=== PATIENT | male | born 1980 | race Caucasian/White ===

== ENCOUNTER 2018-08-06 11:47 | Emergency (ER) | payer MEDICAID, OTHER ==
[~2018-08-06] VITALS: Ht 193 cm; Wt 93.0 kg
[~2018-08-06 11:47] MED LIST: CLIN300C3 PO; HYDR-757 PO; LACT1CAP62 PO; OMEG1CAP51 PO
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
--- OUTSIDE RECORDS SUMMARY | 2018-08-06 11:54 | XMS REPORT | Referral Summary ---
Author Author [facility] Organization [facility] Address Unknown Phone Unavailable Care Team Providers Care Lawn And Garden Technician Name Role Phone No PCP, Pt States PCP Encounter VC Date(s): 04/11/17 - 04/11/17 [facility] [address] [place] [address] [phone] Discharge Diagnosis: Acute foreign body of right foot Discharge Diagnosis: Puncture wound of foot Discharge Disposition: 01-Home or Self Care Attending Physician: Vinay Matias MD Admitting Physician: Vinay Matias MD Vital Signs Most recent to 1 oldest [Reference Range]: Temperature Oral 36.8 degC [35.8-37.3 degC] (04/11/17 5:34 PM) Peripheral Pulse 84 bpm Rate [60-100 bpm] (04/11/17 7:21 PM) Respiratory Rate 18 br/min [14-20 br/min] (04/11/17 7:21 PM) Blood Pressure 123/84 mmHg [90-140/60-90 mmHg] (04/11/17 7:21 PM) SpO2 99 % (04/11/17 7:21 PM) Problem List No Known Problems Allergies, Adverse Reactions, Alerts Substance Reaction Severity Status morphine Anaphylactic reaction Active Tomatoes Anaphylactic reaction Active Toradol Anaphylactic reaction due to adverse effect Active of correct drug or medicament properly administered, sequela Medications Fish Oil Oral, 0 Refill(s) Start Date: 04/11/17 Status: Ordered Keflex 500 mg oral capsule 500 mg 1 caps, Oral, TID, X 10 days, # 30 caps, 0 Refill(s) Start Date: 04/11/17 Stop Date: 04/21/17 Status: Ordered multivitamin Daily, 0 Refill(s) Start Date: 04/11/17 Status: Ordered Hereford 7.5 mg-325 mg oral tablet 1 tabs, Oral, q6hr, as needed for pain, # 20 tabs, 0 Refill(s) Start Date: 04/11/17 Stop Date: 04/26/17 Status: Ordered Hereford 7.5 mg-325 mg oral tablet 1 tabs, Oral, q6hr, as needed for pain, # 15 tabs, 0 Refill(s) Start Date: 04/11/17 Stop Date: 05/03/17 Status: Ordered Results No data available for this section Immunizations No data available for this section Procedures Procedure Date Related Diagnosis Body Site Laparotomy Social History No data available for this section Assessment and Plan No data available for this section
--- OUTSIDE RECORDS SUMMARY | 2018-08-06 11:54 | XMS REPORT ---
Author Author [facility] Medical Staff Organization [facility] Address [address] [place] [address] Phone [phone] Summary purpose TRANSITION OF CARE AUTO GENERATION Chief Complaint and Reason for Visit No authorized Reason for Visit (Admitting Diagnosis) is available for this visit. Problem list No authorized problems tracked for continuity of care are available for this visit. Encounters No authorized problems tracked for encounter diagnoses are available for this visit. Medications No medications recorded for this patient visit Allergies, adverse reactions, alerts Allergen Category Ingredient Status Reaction Severity Onset Toradol Drug Allergy Toradol Confirmed or Verified Toradol Drug Allergy ketorolac Confirmed or Verified morphine Drug Allergy morphine Confirmed or Verified NSAIDS (Non-Steroidal Anti-Inflammatory Drug) Drug Allergy NSAIDS (Non- Steroidal Anti-Inflammatory Drug) Confirmed or Verified influenza virus vacc,specific Drug Allergy influenza virus vacc,specific Confirmed or Verified Immunizations No immunizations recorded for this patient visit Relevant diagnostic tests and/or laboratory data RESULTS Radiology Results [id number]:00 HAND XRAY - 3 VIEW PACs Image DATE OF EXAM: Aug 25 2015 RAD 0730-HAND XRAY-3 VIEW- LEFT: RADIOLOGY REPORT DATE OF SERVICE:08/25/2015 HISTORY:Screwdriver in hand LEFT HAND 3 VIEWS:1823 HOURS Patient has ice pick type appearing metal structure within the soft tissues of the hand between the first and second metacarpals. This does not appear to affect bony structures. There is soft tissue swelling in the area of opaque ice pick foreign body. Again bony structures and joints are normal. IMPRESSION:As above. DO KAREN Reina/leigha 08/26/2015 08:43:00 / 08/26/2015 09:36:44 cc: This document has been electronically Signed by: On: DATE OF EXAM: Aug 25 2015 RAD 0730-HAND XRAY-3 VIEW- LEFT: RADIOLOGY REPORT DATE OF SERVICE:08/25/2015 HISTORY:Screwdriver in hand LEFT HAND 3 VIEWS:1823 HOURS Patient has ice pick type appearing metal structure within the soft tissues of the hand between the first and second metacarpals. This does not appear to affect bony structures. There is soft tissue swelling in the area of opaque ice pick foreign body. Again bony structures and joints are normal. IMPRESSION:As above. DO Melva Reina 08/26/2015 08:43:00 / 08/26/2015 09:36:44 cc: This document has been electronically Signed by: AURY MALONE DO On: Aug 28 20154:34P Result Amended on 2015-08-28 at 16:34:47. Previous status was HI. HAND XRAY - 3 VIEW PACs Image DATE OF EXAM: Aug 25 2015 RAD 0730-HAND XRAY-3 VIEW- LEFT: RADIOLOGY REPORT DATE OF SERVICE:08/25/2015 HISTORY:Removal of foreign body. LEFT HAND: 1828 HOURS No residual opaque foreign body is seen. Soft tissues are otherwise unremarkable with likely some swelling in the area where the ice pick was inserted laterally into the hand. Overall hand appears normal. IMPRESSION: As above. DO Melva Reina 08/26/2015 08:43:00 / 08/26/2015 09:38:23 cc: This document has been electronically Signed by: On: DATE OF EXAM: Aug 25 2015 RAD 0730-HAND XRAY-3 VIEW- LEFT: RADIOLOGY REPORT DATE OF SERVICE:08/25/2015 HISTORY:Removal of foreign body. LEFT HAND: 1828 HOURS No residual opaque foreign body is seen. Soft tissues are otherwise unremarkable with likely some swelling in the area where the ice pick was inserted laterally into the hand. Overall hand appears normal. IMPRESSION: As above. DO Melva Reina 08/26/2015 08:43:00 / 08/26/2015 09:38:23 cc: This document has been electronically Signed by: AURY MALONE DO On: Aug 28 20154:34P Result Amended on 2015-08-28 at 16:34:50. Previous status was HI. History of procedures Procedure Code Code Type Description Date Performed Performing Physician 71088 CPT-4 X-RAY EXAM OF HAND 08-25-2015 JEVON MUNIZ 77462 CPT-4 X-RAY EXAM OF HAND 08-25-2015 JEVON MUNIZ J3010 CPT-4 FENTANYL CITRATE INJECITON 08-25-2015 JEVON MUNIZ J2060 CPT-4 LORAZEPAM INJECTION 08-25-2015 JEVON MUNIZ J0690 CPT-4 CEFAZOLIN SODIUM INJECTION 08-25-2015 JEVON MUNIZ J7040 CPT-4 NORMAL SALINE SOLUTION INFUS 08-25-2015 JEVON MUNIZ 69092 CPT-4 TDAP VACCINE >7 IM 08-25-2015 JEVON MUNIZ 93039 CPT-4 EMERGENCY DEPT VISIT 08-25-2015 JEVON MUNIZ 71510 CPT-4 EMERGENCY DEPT VISIT 08-25-2015 JEVON MUNIZ 57539 CPT-4 TX/PRO/DX INJ NEW DRUG ADDON 08-25-2015 JEVON MUNIZ 90656 CPT-4 THER/PROPH/DIAG IV INF, INIT 08-25-2015 JEVON MUNIZ Functional status Functional Status Finding Observation Time Abdomen Appearance flat 89-47-389794:23 Abdomen soft 32-72-779122:23 Mederos no 29-36-205858:23 Urination normal 48-99-707296:23 Quality sym/unlabored 14-84-206789:23 Cough absent 11-14-652991:23 Secretions no :23 Breath Sounds RUL clear :23 Breath Sounds RML clear :23 Breath Sounds RLL clear :23 Breath Sounds BERNADETTE clear :23 Breath Sounds LLL clear 85-51-050237:23 Airway natural :23 Chest Tube no :23 Oxygen no :28 Temp >100.4 no : Temp <96.8 no :23 Chills with rigors no : HR > 90bpm yes :23 Respirations > 20 no :23 Systolic <90 no :23 headache stiff neck no :23 IV Site Location R AC :25 IV Type peripheral :25 IV Site Information discontinued :25 IV Site Start Attmpt 1 times :10 IV Site Rocky 20 :10 IV Site Appearance WNL :10 IV Site Color clear :10 IV Site Patent yes :10 Dressing Type occlusive :10 Nursing Note pt dc'd to home at this time in good condition and with all known belongings. pt exited ambulatory in care of spouse. rx for cephalexin and hydrocodone in hand. :28 Vital signs Type Value Date Respiration Rate 16breaths per minute : Pulse 88beats per minute : Oxygen Saturation 99% :28 BP Systolic 119mmHg :28 BP Diastolic 75mmHg :28 Temperature 98.4F :28 Weight 197.2LB :55 Social history Type Value Smoking Status NEVER SMOKER Treatment Plan No treatment plan text is available for this visit. Hospital discharge instructions Dismissal Condition good Disposition on DC home DC Inst/Educ Give yes Med/Side Effects Rev yes Flu Vac 2014 Tetanus Vac 2010
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
--- OUTSIDE RECORDS SUMMARY | 2018-08-06 11:54 | XMS REPORT ---
Author Author [facility] Medical Staff Organization [facility] Address [address] [place] [facility] [place] [id number] Phone [phone] Care Team Providers Care Senior Systems Programmer Name Role Phone CANDY GARCIA DO PP [phone] CANDY GARCIA DO PP [phone] Summary purpose CCDA Sent to [facility] Chief Complaint and Reason for Visit No authorized Reason for Visit (Admitting Diagnosis) is available for this visit. Problem list No authorized problems tracked for continuity of care are available for this visit. Encounters No authorized problems tracked for encounter diagnoses are available for this visit. Medications Home Medications Medication Directions Started Status Source multivitamin tablet 1 tablet oral -Daily Current Fish Oil oral 1 tablet oral -Daily Current Allergies, adverse reactions, alerts Allergen Category Ingredient Status Reaction Severity Onset morphine Drug morphine Active Anaphylaxis Adolescence tramadol Drug tramadol Active Anaphylaxis Adolescence lidocaine Drug lidocaine Active Swelling/Edema Adolescence Immunizations No immunizations recorded for this patient visit Relevant diagnostic tests and/or laboratory data No authorized results are available for this patient visit History of procedures No procedures recorded for this patient visit. Functional status Cognitive Status Finding Observation Time Level of Consciousne Alert :50 Oriented to Person Yes :[address] Yes :50 Oriented to Time Yes :50 Vital signs Type Value Date Respirations 16 :57 Pulse 88 :57 O2 Saturation 100% :57 Systolic Blood Press 110mm/HG :57 Diastolic Blood Pres 68mm/HG :57 Temperature (Fahr) 99.2Degrees :50 Social history No Social History or smoking status observations were recorded for this visit. ( Unknown if ever smoked.) Treatment Plan No treatment plan text is available for this visit. Hospital discharge instructions Diagnosis FOREIGN OBJECT TO LEFT LOWER EXTREMITY Diet REGULAR Activity Level TOLERATED Med Dispensed by Pro YOU WERE GIVEN ROCEPHIN 2 GM (ANTIBIOTIC) WHILE IN ER TODAY WELL FENTANYL AND IBUPROFEN FOR PAIN. YOU WERE NOT GIVEN A TETANUS BOOSTER SINCE YOUR LAST WAS 2 YEARS AGO Wound Care WATCH FOR SIGNS OF INFECTION- REDNESS, WARMTH, DRAINAGE Other Instructions FOLLOW UP WITH YOUR PRIMARY CARE PROVIDER IN 5-7 DAYS TO FOLLOW UP ON PUNCTURE WOUND . USE IBUPROFEN FOR PAIN, ICE AND ELEVATE IF NEEDED
--- OUTSIDE RECORDS SUMMARY | 2018-08-06 11:54 | XMS REPORT | Clinical Summary ---
Author Author [facility] Organization [facility] Address Unknown Phone Unavailable Care Team Providers Care Banquet Bartender Name Role Phone Shayy Valdes RN Unavailable Unavailable Yael Gaytan RN Unavailable Unavailable Yusuf Cardona RN Unavailable Unavailable Vinay Vela MD Unavailable t [facility] PCP Shayy Denney RN Unavailable Unavailable Doe Yan RN Unavailable Unavailable Rachna Contreras RN Unavailable Unavailable Trish Edward MD Unavailable Source Comments Some departments are not documenting in the electronic medical record. If you do not see the information that you expected, contact Release of Information in the Health Information Management department at [phone] for further assistance in locating additional records.[facility] Allergies Comments Active Allergy Reactions Severity Noted Date Morphine HIVES 08/06/2010 Tomato seeds Tomato ANAPHYLAXIS 03/22/2011 Ketorolac HIVES, 08/06/2010 ITCHING Medications End Date Status Medication Sig Dispensed Refills Start Date Active PV W-O MOSES/FERROUS Take by 0 FUMARATE/FA (M-VIT PO) mouth. Active divalproex ER (DEPAKOTE Take 500 mg 0 ER) 500 mg tablet by mouth daily. Active topiramate (TOPAMAX) 25 Take 25 mg by 0 mg sprinkle capsule mouth every 12 hours. Active Problems Problem Noted Date Thoracic myofascial strain 07/07/2015 Lumbar spine strain 07/07/2015 Myofascial pain 07/07/2015 Chest wall pain 03/23/2011 Family History Relation Name Status Comments Father Alive Mother Social History Date Tobacco Use Types Packs/Day Years Used Never Smoker Smokeless Tobacco: Chew Current User Tobacco Cessation: Ready to Quit: Yes; Counseling Given: Yes Alcohol Use Drinks/Week oz/Week Comments No rarely Sex Assigned at Date Recorded Not on file Industry Job Start Date Occupation Not on file Not on file Not on file Travel End Travel History Travel Start No recent travel history available. Last Filed Vital Signs Time Taken Vital Sign Reading 07/07/2015 12:06 PM CDT Blood Pressure 116/79 07/07/2015 12:06 PM CDT Pulse 79 02/05/2013 3:49 PM CDT Temperature 36.8 C (98.3 F) 07/07/2015 12:06 PM CDT Respiratory Rate 18 07/07/2015 12:06 PM CDT Oxygen Saturation 100% - Inhaled Oxygen - Concentration 07/07/2015 12:06 PM CDT Weight 90.7 kg (200 lb) 07/07/2015 12:06 PM CDT Height 193 cm (6' 4") 07/07/2015 12:06 PM CDT Body Mass Index 24.34 Plan of Treatment Health Maintenance Due Date Last Done Comments PHYSICAL (COMPREHENSIVE) 1985 EXAM HIV SCREENING 1993 DTAP/TDAP VACCINES (1 - 1996 Tdap) INFLUENZA VACCINE 01/05/2019 Results Not on filefrom Last 3 Months Advance Directives Patient has advance care planning documents, and code status on file. For more information, please contact: [facility] [address] [place] [address] Date Inactivated Comments Code Status Date Activated 03/23/2011 1:20 PM Full Code 03/22/2011 5:26 PM Provider has discussed Code Status Yes w/Patient or Family?
--- OUTSIDE RECORDS SUMMARY | 2018-08-06 11:54 | XMS REPORT | Clinical Summary ---
Author Author [facility] Organization [facility] Address Unknown Phone Unavailable Care Team Providers Care Script Manager Name Role Phone [facility] Medical PCP Allergies Active Allergy Reactions Severity Noted Date Comments Epinephrine Swelling 08/29/2015 Morphine Anaphylaxis High 12/08/2013 Ketorolac Anaphylaxis High 12/08/2013 Current Medications Prescription Sig. Disp. Refills Start End Date Status Date omega 3 fatty acids Take 1,000 mg by mouth Active 500-100 mg capsule daily. therapeutic multivitamin Take 1 tablet by mouth Active (THERAGRAN) tablet daily. diazepam (VALIUM) 2 MG Take 1 tablet (2 mg 10 tablet 0 02/07/20 Active tablet total) by mouth every 8 14 (eight) hours as needed. Active Problems Not on file Immunizations Name Dates Previously Given Next Due Tdap 08/29/2015 Social History Tobacco Use Types Packs/Day Years Used Date Never Smoker Smokeless Tobacco: Chew Current User Alcohol Use Drinks/Week oz/Week Comments No Sex Assigned at Date Recorded Not on file Last Filed Vital Signs Vital Sign Reading Time Taken Blood Pressure 135/92 08/29/2015 5:33 PM CDT Pulse 98 08/29/2015 5:33 PM CDT Temperature 36.8 C (98.3 F) 08/29/2015 5:33 PM CDT Respiratory Rate 16 08/29/2015 5:33 PM CDT Oxygen Saturation 99% 08/29/2015 5:33 PM CDT Inhaled Oxygen - - Concentration Weight 93 kg (205 lb) 08/29/2015 5:33 PM CDT Height 193 cm (6' 3.98") 08/29/2015 5:33 PM CDT Body Mass Index 24.96 08/29/2015 5:33 PM CDT Plan of Treatment Date Type Specialty Care Team Description 09/28/2018 Office Visit Primary Care Kacy Roman PA [address] [place] [address] [phone] Results Not on filefrom Last 3 Months
--- OUTSIDE RECORDS SUMMARY | 2018-08-06 11:54 | XMS REPORT ---
Author Author [facility] Medical Staff Organization [facility] Address [address] [place] [id number] Phone [phone] Care Team Providers Care Lime Plant Operator Name Role Phone CANDY GARCIA DO PP [phone] Summary purpose CCDA Sent to [facility] Chief Complaint and Reason for Visit No authorized Reason for Visit (Admitting Diagnosis) is available for this visit. Problem list No authorized problems tracked for continuity of care are available for this visit. Encounters No authorized problems tracked for encounter diagnoses are available for this visit. Medications No home medications recorded for this patient visit Allergies, [...] recorded for this patient visit. Functional status No functional or cognitive status observations are available for this visit. Vital signs No authorized vital signs are available for this visit. Social history No Social History or smoking status observations were recorded for this visit. ( Unknown if ever smoked.) Treatment Plan No treatment plan text is available for this visit. Hospital discharge instructions No discharge instruction text is available for this visit.
--- OUTSIDE RECORDS SUMMARY | 2018-08-06 11:54 | XMS REPORT ---
Author Author [facility] Medical Staff Organization [facility] [employer] [facility] Address [address] [place] [address] Phone [phone] Summary purpose TRANSITION OF CARE AUTO GENERATION [...] recorded for this patient visit. Functional status Functional Status Finding Observation Time Abdomen Appearance flat :23 Abdomen soft :23 Mederos no :23 Urination normal :23 Quality sym/unlabored : Cough absent :23 Secretions no :23 Breath Sounds RUL clear :23 Breath Sounds RML clear :23 Breath Sounds RLL clear :23 Breath Sounds BERNADETTE clear : Breath Sounds LLL clear :23 Airway natural :23 Chest Tube no :23 Oxygen no :28 Temp >100.4 no : Temp <96.8 no :23 Chills with rigors no : HR > 90bpm yes : Respirations > 20 no : Systolic <90 no : headache stiff neck no : IV Site Location R AC : IV Type peripheral :25 IV Site Information discontinued : IV Site Start Attmpt 1 times : IV Site Rocky 20 : IV Site Appearance WNL : IV Site Color clear : IV Site Patent yes : Dressing Type occlusive : Nursing Note pt dc'd to home at this time in good condition and with all known belongings. pt exited ambulatory in care of spouse. rx for cephalexin and hydrocodone in hand. :28 Vital signs Type Value Date Respiration Rate 16breaths per minute : Pulse 88beats per minute : Oxygen Saturation 99% : BP Systolic 119mmHg :28 BP Diastolic 75mmHg [...]
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
--- OUTSIDE RECORDS SUMMARY | 2018-08-06 11:55 | XMS REPORT | Continuity of Care Document ---
Author Author Awais [facility] Address [address] [place] [address] Care Team Providers Care Cookie Breaker Name Role Phone , PCP Unavailable Yarelis Sparrow Rndphys Unavailable Allergies, Adverse Reactions, Alerts Allergen Type Severity Reaction Last Updated Verified Status ketorolac Allergy Severe ANAPHYLAXIS November 16, 2017 Y Active morphine Allergy Severe Anaphylaxis November 16, 2017 Y Active sumatriptan Allergy Severe SEIZURES November 16, 2017 Y Active tomato Allergy Severe Anaphylaxis November 16, 2017 Y Active influenza A (H1N1) virus vaccine m-kelsi-split 2008 Allergy Mild Hives November 16, 2017 Y Active Medications No known medications. Problem List Active Problems Medical Problem Onset Date Status Hip pain, acute Active Knee pain, left Active Abdominal pain Active Pain in left testicle Active Procedures Procedure Date Status CT abdomen pelvis w con June 01, 2018 completed Relevant Diagnostic Tests and/or Laboratory Data Laboratory Results Test Date/Time Result Interp. Ref. Range Result Comment White Blood Count June 01, 2018 11:20am 7.8 10^3/uL 4.5-11.0 Red Blood Count June 01, 2018 11:20am 4.87 10^6/uL 4.70-6.00 Hemoglobin June 01, 2018 11:20am 14.9 g/dL 13.5-17.5 Hematocrit June 01, 2018 11:20am 42.5 % 41-53 Mean Corpuscular Volume June 01, 2018 11:20am 87.4 fL 79-99 Mean Corpuscular Hemoglobin June 01, 2018 11:20am 30.7 pg 25.0-34.0 Mean Corpuscular Hemoglobin Concent June 01, 2018 11:20am 35.1 g/dL 31.0-36.0 Red Cell Distribution Width June 01, 2018 11:20am 14.1 % 11.0-15.0 Platelet Count June 01, 2018 11:20am 153 10^3 uL 130-400 Mean Platelet Volume June 01, 2018 11:20am 8.5 fL 7.0-11.0 Neutrophils (%) (Auto) June 01, 2018 11:20am 76.4 % High 43.0-72.0 Lymphocytes (%) (Auto) June 01, 2018 11:20am 10.6 % Low 15.0-45.0 Monocytes (%) (Auto) June 01, 2018 11:20am 12.6 % High 1.0-12.0 Eosinophils (%) (Auto) June 01, 2018 11:20am 0.1 % 0.0-6.0 Basophils (%) (Auto) June 01, 2018 11:20am 0.3 % 0.0-2.0 Neutrophils # (Auto) June 01, 2018 11:20am 6.0 10^3 uL 1.0-8.0 Lymphocytes # (Auto) June 01, 2018 11:20am 0.8 10^3 uL Low 1.0-3.0 Monocytes # (Auto) June 01, 2018 11:20am 1.0 10^3 uL 0.0-1.0 Eosinophils # (Auto) June 01, 2018 11:20am 0.0 10^3 uL 0.0-0.4 Basophils # (Auto) June 01, 2018 11:20am 0.0 10^3 uL 0.0-0.2 Urine Color June 01, 2018 11:41am Yellow Yellow Urine Appearance June 01, 2018 11:41am Clear Clear Urine pH June 01, 2018 11:41am 5.5 4.5 - 7.5 Urine Specific [place] June 01, 2018 11:41am 1.025 1.010-1.025 Urine Protein June 01, 2018 11:41am 2+ High Neg-Trace Urine Glucose (UA) June 01, 2018 11:41am Negative Negative Urine Ketones June 01, 2018 11:41am Negative Negative Urine Blood June 01, 2018 11:41am Trace High Negative Urine Nitrite June 01, 2018 11:41am Negative Negative Urine Bilirubin June 01, 2018 11:41am 1+ High Negative Urine Urobilinogen June 01, 2018 11:41am 2.0 High <=1.0 Urine Leukocyte Esterase June 01, 2018 11:41am Negative Negative Urine RBC June 01, 2018 11:41am 2-5 0 - 5 Urine WBC June 01, 2018 11:41am 2-4 0 - 4 Urine Squamous Epithelial Cells June 01, 2018 11:41am Not Reportable Urine Bacteria June 01, 2018 11:41am Trace High Negative Urine Mucus June 01, 2018 11:41am 2+ High None Seen Urine Culture Indicated June 01, 2018 11:41am Not Indicated No Culture Reflex Ordered. The specimen did not meet the following criteria OR contained >25 epithelials, indicating contamination. * Culture Criteria: * * * * Urinalysis Leukocyte 1+ or > * * Urinalysis Nitrates + * * Microscopic WBC 10 or > * * Microscopic Bacteria 2+ or > * * Microscopic Yeast 2+ or > * Urinalysis Comment June 01, 2018 11:41am See comment Asymptomatic bacteriuria should seldom if ever be treated unless related to or urologic surgery. Symptomatic urinary tract infection (UTI) is defined by 2 or more of the following without an alternative explanation: - Fever - Flank pain or tenderness - Suprapubic pain or tenderness - Costovertebral angle pain or tenderness - Acute hematuria - Dysuria - New or marked increase in frequency / urgency Pyuria alone is not a criterion for symptomatic UTI. Source: [facility] National Healthcare Safety Network Criteria for Defining UTI Events Treatment recommendations 1st line: Nitrofurantoin for 5 days; Bactrim DS for 3 days 2nd line: Beta-lactams for 5 days; Cipro or Levaquin for 3 days [place] Fluoroquinolones for severe infections or those with no alternative treatment options. Serious adverse effects outweigh benefits for patients with uncomplicated infections Sodium Level June 01, 2018 11:20am 132 mmol/L Low 135-150 Potassium Level June 01, 2018 11:20am 3.6 mmol/L 3.4-5.2 Chloride Level June 01, 2018 11:20am 98 mmol/L Low 100-112 Carbon Dioxide Level June 01, 2018 11:20am 27 mEq/L 18-30 Anion Gap June 01, 2018 11:20am 7 mmol/L Low 8-11 Blood Urea Nitrogen June 01, 2018 11:20am 11 mg/dL 5-21 Creatinine June 01, 2018 11:20am 1.13 mg/dL 0.60-1.30 Glomerular Filtration Rate Calc June 01, 2018 11:20am > 60 mL/Min > 60 The GFR is not validated for use in drug dosing adjustments. Continue to use estimated creatinine clearance per dosing reference text. Chronic Kidney Disease is defined as either kidney damage or a GFR less than 60 ml/min that persists for at least 3 months. Stage 3=30-59 ml/min Stage 4=15-29 ml/min Stage 5=<15 ml/min Glucose Level June 01, 2018 11:20am 111 mg/dL High 70-99 Calcium Level June 01, 2018 11:20am 9.5 mg/dL 8.6-10.5 Total Bilirubin June 01, 2018 11:20am 0.8 mg/dL 0.0-1.2 Aspartate Amino Transf (AST/SGOT) June 01, 2018 11:20am 119 U/L High 6- 37 Alanine Aminotransferase (ALT/SGPT) June 01, 2018 11:20am 152 U/L High 12-78 Total Protein June 01, 2018 11:20am 8.2 g/dL 6.4-8.2 Albumin June 01, 2018 11:20am 3.6 g/dL 3.3-4.5 Albumin/Globulin Ratio June 01, 2018 11:20am 0.8 0.7-2.0 Alkaline Phosphatase June 01, 2018 11:20am 69 U/L 50-136 Lipase June 01, 2018 11:20am 181 U/L High 8-78 Chief Complaint and Reason for Visit Encounter Admit Date Chief Complaint Reason for Visit Departed Emergency June 01, 2018 11:05am abdominal pain Hospital Discharge Instructions Additional Discharge Instructions Home to rest. The CT scan did now a specific inflammation of the pancreas, liver, large and small intestine, nor gall bladder. Continue now with tylenol, 500mg, one tablet every 6 hours as needed for pain. Keep to a liquid diet for the next three days. Follow up with your doctor or with Susan Flannery at the [facility] in the next week. Please return to the emergency room if you have any uncontrolled nausea and vomiting or develop a fever of 101.3 or greater, or for any other concern. Instruction/Education Provided Abdominal Pain (ED) Problem: Abdominal Pain Goal: Relief of abdominal pain Plan: Refer to patient instructions provided. Encounters Encounter Facility Location Admit/Visit Date Discharge/Departure Date Attending Provider Departed Emergency [facility] June 01, 2018 11:05am June 01, 2018 2:11pm Functional Status No known functional status. Immunizations No known immunizations. Payers Payer Name Policy Type Covered Republican Covered Republican Id Relationship Subscriber Subscriber Id [facility] Medicaid Matt Parris [id number] Self / Same As Patient Matt Nye [id number] [facility] Medicaid Matt Parris [id number] Self / Same As Patient Matt Nye [id number] Self Pay Plan of Care Instructions Abdominal Pain (ED) Problem: Abdominal Pain Goal: Relief of abdominal pain Plan: Refer to patient instructions provided. Social History No known social history. Vital Signs Vital Reading Result Reference Range Collection Date/Time Height 6 ft 1 in June 01, 2018 11:35am Weight 205 lb June 01, 2018 11:35am Temperature 97.3 F 97.5 F-99.5 F June 01, 2018 11:05am Pulse 74 BPM 60-90 June 01, 2018 11:05am Respiration 18 RPM 12-June 01, 2018 11:05am Pulse Oximetry 100 % 90-100 June 01, 2018 11:05am Blood Pressure Systolic 118 100-160 June 01, 2018 11:05am Blood Pressure Diastolic 94 50-80 June 01, 2018 11:05am Body Mass Index 27.0 June 01, 2018 11:35am
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
--- OUTSIDE RECORDS SUMMARY | 2018-08-06 11:56 | XMS REPORT | Continuity of Care Document ---
Author Organization Unknown Address [address] [place] [address] Care Team Providers Care Public Area Attendant Name Role Phone OLIVIA GARCIA MD Unavailable Insurance Providers Payer Name Policy Number Subscriber Name Relationship [employer] [id number] IZZY RAINEY PATIENT/SELF Advance Directives Directive Response Recorded Date/Time Advance Directive Information: AD BROCHURE GIVEN TO PT 06/22/15 11:40am Chief Complaint and Reason for Visit Reason for Visit TWISTED LOWER BACK Problems Active Medical Problems Problem Onset Date Recorded Date Status Low back pain Unknown 11/22/13 Active Concussion Unknown 03/07/14 Active Neck sprain Unknown 03/07/14 Active Blunt head injury Unknown 08/28/14 Active Head contusion Unknown 12/27/14 Active Neck strain Unknown 12/27/14 Active Post-operative state Unknown 01/06/15 Active Post-op bleeding Unknown 01/06/15 Active Wound dehiscence Unknown 01/16/15 Active Injury of left shoulder Unknown 02/14/15 Active Injury by nail gun Unknown 02/14/15 Active Strain of left tibialis anterior muscle Unknown 04/08/15 Active Contusion of leg, left Unknown 04/19/15 Active Fall Unknown 06/22/15 Active Acute exacerbation of chronic low back pain Unknown 06/22/15 Active Medications Current Home Medications Medication Dose Units Route Directions Days/Qty Instructions Start Date Acetaminophen 325 MG (Tylenol 325 MG) 1 TAB TAB 2 TAB BY MOUTH EVERY 4 HOURS NEEDED PRN PAIN Citalopram Hydrobromide (Celexa) 40 MG TABLET 40 MG BY MOUTH DAILY Hydrocodone 5MG/Acet 325MG ([place] Leon 5-325 Tablet) 1 EACH TABLET 1 TAB BY MOUTH EVERY 6 HOURS NEEDED PRN PAIN 10 06/22/15 Oxycodone Cr (Oxycontin Cr) 20 MG TAB.ER.12H 30 MG BY MOUTH Q12H PRN PRN PAIN 6 04/08/15 Oxycodone HCl/Acetaminophen (Percocet 7.5-325 MG Tablet) 1 EACH TABLET 1-2 TAB BY MOUTH EVERY 4 HOURS NEEDED PRN PAIN 30 04/08/15 Phenytoin (Dilantin) 100 MG CAP 300 MG BY MOUTH TWICE DAILY Prazosin (Minipress) 2 MG UD.CAP 4 MG BY MOUTH BEDTIME TAKES 2 PILLS. Prednisone 20 MG TABLET 1 TAB BY MOUTH TWICE DAILY 10 06/22/15 Past Home Medications Medication Directions Ordered Status Medication Reconciliation (Medication Reconciliation) 1 Each Ea Ea, 1 Each By Mouth ONE TIME ONLY Unknown Discontinued Asa/Salicylam/Acetaminoph/Caff (Levacet Caplet) 1 Each Tablet Tablet, 2 Each Po TWICE DAILY Unknown Discontinued Cephalexin (Keflex) 500 Mg Capsule Capsule, 1 Tab By Mouth FOUR TIMES DAILY 11/09/14 Discontinued Citalopram Hydrobromide (Celexa) 20 Mg Tablet Tablet, 20 Mg Po DAILY Unknown Discontinued Clindamycin Hcl (Cleocin Hcl) 150 Mg Capsule Capsule, 300 Mg By Mouth EVERY 6 HOURS 02/14/15 Discontinued Cyclobenzaprine (Flexeril Tab) 10 Mg Tab Tab, 1 Tab Po Q8H PRN PRN MUSCLE SPASMS 09/27/13 Discontinued Cyclobenzaprine (Flexeril Tab) 10 Mg Tab Tab, 1 Tab Po Q8H PRN PRN MUSCLE SPASMS 03/07/14 Discontinued Cyclobenzaprine (Flexeril Tab) 10 Mg Tab Tab, 1 Tab Po Q8H PRN PRN MUSCLE SPASMS 08/28/14 Discontinued [Dilantin] , Po DAILY Unknown Discontinued Hydrocod 10MG/Actm 325MG (Vicodin 10-325) 1 Each Tablet Tablet, 500 Mg Po as needed Unknown Discontinued Hydrocodone 5MG/Acet 325MG ([place] Leon 5-325 Tablet) 1 Each Tablet Tablet, 1 Tab By Mouth EVERY 4 HOURS NEEDED PRN PAIN 12/27/14 Discontinued Hydrocodone 5MG/Acet 325MG ([place] 5-325 Tablet) 1 Each Tablet Tablet, 1 Tab By Mouth EVERY 6 HOURS NEEDED PRN PAIN 01/16/15 Discontinued Hydrocodone 5MG/Acet 325MG ([place] Leon 5-325 Tablet) 1 Each Tablet Tablet, 1 Tab By Mouth EVERY 6 HOURS NEEDED PRN PAIN 02/14/15 Discontinued Hydrocodone 5MG/Acet 325MG (De Leon 5-325 Tablet) 1 Each Tablet Tablet, 1-2 Tab Po EVERY 4 HOURS NEEDED PRN PAIN 09/27/13 Discontinued Hydrocodone 5MG/Acet 325MG (De Leon 5-325 Tablet) 1 Each Tablet Tablet, 1 Tab By Mouth EVERY 6 HOURS NEEDED PRN PAIN 01/06/15 Discontinued Hydrocodone 5MG/Actm 325 Mg (Vicodin/Lortab 5-325 Mg) 1 Udtab Ud.tab Ud.tab, 1 Tab Po EVERY 6 HOURS NEEDED PRN PAIN Unknown Discontinued Hydroxyzine Hcl 50 Mg Tablet Tablet, 50 Mg Po 4 times daily PRN For ANXIETY Unknown Discontinued Hydroxyzine Hcl 50 Mg Tablet Tablet, 50 Mg Po as needed Unknown Discontinued Levetiracetam 500 Mg Tablet Tablet, 1,000 Mg Po TWICE DAILY Unknown Discontinued Naproxen Sodium (Aleve) 220 Mg Tab Tab, 220 Mg By Mouth TWICE DAILY WITH MEALS Unknown Discontinued Naproxen Sodium* (Naprosyn<Generic>*) 250 Mg Tab Tab, 250 Mg Po TWICE DAILY Unknown Discontinued Nicotine Polacrilex (Nicorette) 2 Mg Gum Gum, 2 Mg Bc EVERY 1 HR NEEDED Unknown Discontinued Nicotine Polacrilex (Nicotine Gum) 2 Mg Gum Gum, 2 Mg Unknown Discontinued Ondansetron Odt (Zofran Odt) 4 Mg Tab Tab, 1 Tab By Mouth EVERY 6 HOURS NEEDED PRN NAUSEA AND VOMITING 01/06/15 Discontinued Prazosin (Minipress) 2 Mg Ud.cap Ud.cap, 2 Mg Po TWICE DAILY Unknown Discontinued Prazosin (Minipress) 2 Mg Ud.cap Ud.cap, 2 Mg TWICE DAILY Unknown Discontinued Tramadol (Ultram) 50 Mg Tab Tab, 50 Mg By Mouth EVERY 6 HOURS NEEDED PRN PAIN 08/28/14 Discontinued Trazodone (Desyrel<Generic>) 50 Mg Ud.tab Ud.tab, 25 Mg Po Bedtime as needed PRN INSOMNNIA Unknown Discontinued Social History Problem Response Recorded Date Drug Use none 09/27/13 Alcohol Use none 09/27/13 Hospital Discharge Instructions ======DISCHARGE WITH THE FOLLOWING INSTRUCTIONS====== Reason for Hospitalization: R/O COMPARTMENT SYNDROME Physician: DR. SORTO Discharge Diet: TOLERATED Discharge Activity: WEIGHT BEARING TO LEFT LEG TOLERATED Special Care: ICE AND ELEVATE LEFT LEG Special Care: RETURN TO ER IF PAIN WORSENS OR PAIN IS UNCONTROLLED WITH MEDS Return Appointment: FOLLOW-UP WITH DR. SORTO NEEDED Return Appointment: CALL OFFICE TO SCHEDULE MRI IF SYMPTOMS PERSIST Prescription given to Patient: YES Prescription called to Pharmacy: NONE Vaccinations Given: None Given If you need assistance in contacting your physician or his/ her designee call [facility] switchboard at [phone]. At [facility] we strive to provide excellent care to all patients, every visit. We appreciate any feedback from those we serve to make sure that we are meeting our goal. After dismissal, you may receive a phone call from [facility] to ask about your overall experience. We would greatly appreciate it if you would take the time to participate in the survey so that we may know how we are doing. If you do not receive a phone call and would like to share your experience, feel free to contact us. (Teach back method utilized to ensure patient understanding of instructions.) (Patient has received & understands dismissal instructions.) Plan of Care Discharge Date 06/22/15 Disposition HOME/SELF CARE Instructions/Education Provided Managing Chronic Low Back Pain Prescriptions See Medications Section Referrals OLIVIA GARCIA MD - Additional Instructions/Education Follow up in three to five days if not well. Return to the ER as needed. Care Plan and Goals Problem: Back Pain Goal: Relief of back pain. Plan: Refer to patient instructions provided. Functional Status No functional status results. Allergies, Adverse Reactions, Alerts Allergen Type Severity Reaction Status Last Updated ketorolac tromethamine Allergy Severe Anaphylaxis Active 04/08/15 NSAIDS (NON-STEROIDAL ANTI-INFLAMMA Allergy Unknown Active 04/08/15 MORPHINE Allergy Severe Anaphylaxis Active 04/08/15 PNEUMOCOCCAL VACCINE Allergy Intermediate BROKEOUT/SWELLING Active TOMATO Allergy Unknown Active 04/08/15 Immunizations Name Date Given Type *Flu Shot: None Historical *Tetanus Shot: Less than 5 Years Historical Vital Signs Vital Reading Collection Date/Time Result Blood Pressure 06/22/15 1:15pm 127/80 Patient Temperature 06/22/15 1:15pm 96.7 Temperature Source 06/22/15 11:45am Oral Respiratory Rate 06/22/15 1:15pm 16 Pulse Rate 06/22/15 1:15pm 81 Bedside Pulse Oximetry 06/22/15 1:15pm 100 Height 06/22/15 11:45am 6 ft 4 in Weight 06/22/15 11:45am 200 lb Body Mass Index 06/22/15 11:45am 24.3 Height 04/08/15 2:37pm 193.04 cm Weight 04/08/15 2:37pm 89.584 kg Results Laboratory Results Test Name Result Units Flags Reference Collection Date/Time Result Date/ Time Comments White Blood Count 11.8 10^3/uL H 4.5-11.0 05/16/15 5:03pm 05/16/15 5: 26pm Red Blood Count 5.09 10^6/uL 4.70-6.00 05/16/15 5:03pm 05/16/15 5:26pm Hemoglobin 15.1 g/dl 13.5-17.5 05/16/15 5:03pm 05/16/15 5:26pm Hematocrit 45.7 % 41-53 05/16/15 5:03pm 05/16/15 5:26pm Mean Corpuscular Volume 89.8 fL 80-100 05/16/15 5:03pm 05/16/15 5:26pm Mean Corpuscular Hemoglobin 29.6 pg 25.0-34.0 05/16/15 5:03pm 05/16/15 5:26pm Mean Corpuscular Hemoglobin Concent 32.9 g/dL 31.0-36.0 05/16/15 5:03pm 05/16/15 5:26pm Red Cell Distribution Width 13.7 % 11.0-15.0 05/16/15 5:03pm 05/16/15 5 :26pm Platelet Count 258 10^3/uL 130-400 05/16/15 5:03pm 05/16/15 5:26pm Mean Platelet Volume 7.7 fL 7.0-11.0 05/16/15 5:03pm 05/16/15 5:26pm Neutrophils (Manual) 79 % H 50-65 05/16/15 5:03pm 05/16/15 6:45pm Band Neutrophils 2 % 0-10 05/16/15 5:03pm 05/16/15 6:45pm Lymphocytes (Manual) 16 % 15-45 05/16/15 5:03pm 05/16/15 6:45pm Monocytes (Manual) 3 % 0-10 05/16/15 5:03pm 05/16/15 6:45pm ABSOLUTE NEUTROPHIL COUNT 9.6 # H 1.0-8.0 05/16/15 5:03pm 05/16/15 6: 45pm LYMPHOCYTE # 1.9 # 1.0-3.0 05/16/15 5:03pm 05/16/15 6:45pm MONOCYTE # 0.4 # 0.0-1.0 05/16/15 5:03pm 05/16/15 6:45pm EOSINOPHIL # 0.0 # 0.0-0.4 05/16/15 5:03pm 05/16/15 6:45pm BASOPHIL # 0.0 # 0.0-0.2 05/16/15 5:03pm 05/16/15 6:45pm Sodium Level 141 mmol/L 135-150 05/16/15 5:03pm 05/16/15 5:40pm Potassium Level 3.9 mmol/L 3.4-5.2 05/16/15 5:03pm 05/16/15 5:40pm Chloride Level 102 mmol/L 100-112 05/16/15 5:03pm 05/16/15 5:40pm Carbon Dioxide Level 30 meq/L 21-33 05/16/15 5:03pm 05/16/15 5:40pm Anion Gap 9 mmol/L 8-16 05/16/15 5:03pm 05/16/15 5:40pm Glucose Level 92 mg/dl 70-99 05/16/15 5:03pm 05/16/15 5:40pm Blood Urea Nitrogen 12 mg/dl 5-21 05/16/15 5:03pm 05/16/15 5:40pm Creatinine 1.08 mg/dl 0.60-1.30 05/16/15 5:03pm 05/16/15 5:40pm Glomerular Filtration Rate Calc > 60 mL/Min > 60 05/16/15 5:03pm 5:40pm The GFR is not validated for use in drug dosing adjustments. Continue to use estimated creatinine clearance per dosing reference text. Chronic Kidney Disease is defined as either kidney damage or a GFR less than 60 ml/min that persists for at least 3 months. Stage 3=30-59 ml/min Stage 4=15-29 ml/min Stage 5=<15 ml/min Alkaline Phosphatase 93 U/L 46-116 05/16/15 5:03pm 05/16/15 5:40pm Total Bilirubin 0.4 mg/dl 0.0-1.2 05/16/15 5:03pm 05/16/15 5:40pm Aspartate Amino Transf (AST/SGOT) 29 U/L 6-37 05/16/15 5:03pm 05/16/15 5:40pm Alanine Aminotransferase (ALT/SGPT) 53 U/L 12-78 05/16/15 5:03pm 5:40pm Total Protein 8.9 g/dl H 6.4-8.2 05/16/15 5:03pm 05/16/15 5:40pm Albumin 4.5 g/dl 3.3-4.5 05/16/15 5:03pm 05/16/15 5:40pm Albumin/Globulin Ratio 1.0 0.7-2.0 05/16/15 5:03pm 05/16/15 5:40pm Calcium Level 9.2 mg/dl 8.6-10.5 05/16/15 5:03pm 05/16/15 5:40pm Free/Total Phenytoin Level < 0.5 ug/ml L 10.0-20.0 05/16/15 5:03pm 05/16 6:03pm White Blood Count 7.2 10^3/uL 4.5-11.0 04/19/15 2:15pm 04/19/15 3:17pm Red Blood Count 4.52 10^6/uL L 4.70-6.00 04/19/15 2:15pm 04/19/15 3: 17pm Hemoglobin 13.4 g/dl L 13.5-17.5 04/19/15 2:15pm 04/19/15 3:17pm Hematocrit 40.1 % L 41-53 04/19/15 2:15pm 04/19/15 3:17pm Mean Corpuscular Volume 88.8 fL 80-100 04/19/15 2:15pm 04/19/15 3:17pm Mean Corpuscular Hemoglobin 29.7 pg 25.0-34.0 04/19/15 2:15pm 04/19/15 3:17pm Mean Corpuscular Hemoglobin Concent 33.5 g/dL 31.0-36.0 04/19/15 2:15pm 04/19/15 3:17pm Red Cell Distribution Width 13.0 % 11.0-15.0 04/19/15 2:15pm 04/19/15 3 :17pm Platelet Count 287 10^3/uL 130-400 04/19/15 2:15pm 04/19/15 3:17pm Mean Platelet Volume 7.5 fL 7.0-11.0 04/19/15 2:15pm 04/19/15 3:17pm Neutrophils (Manual) 71 % H 50-65 04/19/15 2:15pm 04/19/15 3:20pm Band Neutrophils 2 % 0-10 04/19/15 2:15pm 04/19/15 3:20pm Lymphocytes (Manual) 18 % 15-45 04/19/15 2:15pm 04/19/15 3:20pm Monocytes (Manual) 7 % 0-10 04/19/15 2:15pm 04/19/15 3:20pm Basophils (Manual) 1 % 0-2 04/19/15 2:15pm 04/19/15 3:20pm Myelocytes 1 % H 0 04/19/15 2:15pm 04/19/15 3:20pm ABSOLUTE NEUTROPHIL COUNT 5.3 # 1.0-8.0 04/19/15 2:15pm 04/19/15 3: 20pm LYMPHOCYTE # 1.3 # 1.0-3.0 04/19/15 2:15pm 04/19/15 3:20pm MONOCYTE # 0.5 # 0.0-1.0 04/19/15 2:15pm 04/19/15 3:20pm EOSINOPHIL # 0.0 # 0.0-0.4 04/19/15 2:15pm 04/19/15 3:20pm BASOPHIL # 0.1 # 0.0-0.2 04/19/15 2:15pm 04/19/15 3:20pm D-Dimer 0.98 ug/ml H < 0.50 04/19/15 2:15pm 04/19/15 2:50pm D-Dimer results: D-Dimer less than 0.50 mg/L and otherwise normal patient history=LOW PROBABILITY OF DVT/PE. D-Dimer greater than 0.50 mg/L=CONTINUE INVESTIGATION TO RULE OUT DVT/PE. Comment: D-Dimer results should always be interpreted in conjunction with the patient's medical history, clinical presentation and other findings. White Blood Count 8.9 10^3/uL 4.5-11.0 04/08/15 1:51pm 04/08/15 2:02pm Red Blood Count 4.55 10^6/uL L 4.70-6.00 04/08/15 1:51pm 04/08/15 2: 02pm Hemoglobin 13.6 g/dl 13.5-17.5 04/08/15 1:51pm 04/08/15 2:02pm Hematocrit 40.6 % L 41-53 04/08/15 1:51pm 04/08/15 2:02pm Mean Corpuscular Volume 89.3 fL 80-100 04/08/15 1:51pm 04/08/15 2:02pm Mean Corpuscular Hemoglobin 29.9 pg 25.0-34.0 04/08/15 1:51pm 04/08/15 2:02pm Mean Corpuscular Hemoglobin Concent 33.5 g/dL 31.0-36.0 04/08/15 1:51pm 04/08/15 2:02pm Red Cell Distribution Width 13.5 % 11.0-15.0 04/08/15 1:51pm 04/08/15 2 :02pm Platelet Count 194 10^3/uL 130-400 04/08/15 1:51pm 04/08/15 2:02pm Mean Platelet Volume 8.0 fL 7.0-11.0 04/08/15 1:51pm 04/08/15 2:02pm Neutrophils (Manual) 79 % H 50-65 04/08/15 1:51pm 04/08/15 2:13pm Band Neutrophils 3 % 0-10 04/08/15 1:51pm 04/08/15 2:13pm Lymphocytes (Manual) 13 % L 15-45 04/08/15 1:51pm 04/08/15 2:13pm Monocytes (Manual) 4 % 0-10 04/08/15 1:51pm 04/08/15 2:13pm Eosinophils (Manual) 1 % 0-5 04/08/15 1:51pm 04/08/15 2:13pm ABSOLUTE NEUTROPHIL COUNT 7.3 # 1.0-8.0 04/08/15 1:51pm 04/08/15 2: 13pm LYMPHOCYTE # 1.2 # 1.0-3.0 04/08/15 1:51pm 04/08/15 2:13pm MONOCYTE # 0.4 # 0.0-1.0 04/08/15 1:51pm 04/08/15 2:13pm EOSINOPHIL # 0.1 # 0.0-0.4 04/08/15 1:51pm 04/08/15 2:13pm BASOPHIL # 0.0 # 0.0-0.2 04/08/15 1:51pm 04/08/15 2:13pm Sodium Level 140 mmol/L 135-150 04/08/15 1:49pm 04/08/15 2:13pm Potassium Level 4.0 mmol/L 3.4-5.2 04/08/15 1:49pm 04/08/15 2:13pm Chloride Level 104 mmol/L 100-112 04/08/15 1:49pm 04/08/15 2:13pm Carbon Dioxide Level 28 meq/L 21-33 04/08/15 1:49pm 04/08/15 2:13pm Anion Gap 8 mmol/L 8-16 04/08/15 1:49pm 04/08/15 2:13pm Glucose Level 98 mg/dl 70-99 04/08/15 1:49pm 04/08/15 2:13pm Blood Urea Nitrogen 7 mg/dl 5-21 04/08/15 1:49pm 04/08/15 2:13pm Creatinine 1.03 mg/dl 0.60-1.30 04/08/15 1:49pm 04/08/15 2:13pm Glomerular Filtration Rate Calc > 60 mL/Min > 60 04/08/15 1:49pm 2:13pm The GFR is not validated for use in drug dosing adjustments. Continue to use estimated creatinine clearance per dosing reference text. Chronic Kidney Disease is defined as either kidney damage or a GFR less than 60 ml/min that persists for at least 3 months. Stage 3=30-59 ml/min Stage 4=15-29 ml/min Stage 5=<15 ml/min Alkaline Phosphatase 84 U/L 46-116 04/08/15 1:49pm 04/08/15 2:13pm Total Bilirubin 0.4 mg/dl 0.0-1.2 04/08/15 1:49pm 04/08/15 2:13pm Aspartate Amino Transf (AST/SGOT) 31 U/L 6-37 04/08/15 1:49pm 04/08/15 2:13pm Alanine Aminotransferase (ALT/SGPT) 26 U/L 12-78 04/08/15 1:49pm 2:13pm Total Protein 7.6 g/dl 6.4-8.2 04/08/15 1:49pm 04/08/15 2:13pm Albumin 4.0 g/dl 3.3-4.5 04/08/15 1:49pm 04/08/15 2:13pm Albumin/Globulin Ratio 1.1 0.7-2.0 04/08/15 1:49pm 04/08/15 2:13pm Calcium Level 8.5 mg/dl L 8.6-10.5 04/08/15 1:49pm 04/08/15 2:13pm White Blood Count 8.5 10^3/uL 4.5-11.0 01/06/15 1:41pm 01/06/15 2:17pm Red Blood Count 5.12 10^6/uL 4.70-6.00 01/06/15 1:41pm 01/06/15 2:17pm Hemoglobin 15.2 g/dl 13.5-17.5 01/06/15 1:41pm 01/06/15 2:17pm Hematocrit 45.3 % 41-53 01/06/15 1:41pm 01/06/15 2:17pm Mean Corpuscular Volume 88.6 fL 80-100 01/06/15 1:41pm 01/06/15 2:17pm Mean Corpuscular Hemoglobin 29.7 pg 25.0-34.0 01/06/15 1:41pm 01/06/15 2:17pm Mean Corpuscular Hemoglobin Concent 33.5 g/dL 31.0-36.0 01/06/15 1:41pm 01/06/15 2:17pm Red Cell Distribution Width 13.4 % 11.0-15.0 01/06/15 1:41pm 01/06/15 2 :17pm Platelet Count 233 10^3/uL 130-400 01/06/15 1:41pm 01/06/15 2:17pm Mean Platelet Volume 8.2 fL 7.0-11.0 01/06/15 1:41pm 01/06/15 2:17pm Neutrophils (Manual) 71 % H 50-65 01/06/15 1:41pm 01/06/15 2:40pm Lymphocytes (Manual) 20 % 15-45 01/06/15 1:41pm 01/06/15 2:40pm Monocytes (Manual) 9 % 0-10 01/06/15 1:41pm 01/06/15 2:40pm ABSOLUTE NEUTROPHIL COUNT 6.0 # 1.0-8.0 01/06/15 1:41pm 01/06/15 2: 40pm LYMPHOCYTE # 1.7 # 1.0-3.0 01/06/15 1:41pm 01/06/15 2:40pm MONOCYTE # 0.8 # 0.0-1.0 01/06/15 1:41pm 01/06/15 2:40pm EOSINOPHIL # 0.0 # 0.0-0.4 01/06/15 1:41pm 01/06/15 2:40pm BASOPHIL # 0.0 # 0.0-0.2 01/06/15 1:41pm 01/06/15 2:40pm Sodium Level 142 mmol/L 135-150 01/06/15 1:41pm 01/06/15 2:18pm Potassium Level 4.3 mmol/L 3.4-5.2 01/06/15 1:41pm 01/06/15 2:18pm Chloride Level 103 mmol/L 100-112 01/06/15 1:41pm 01/06/15 2:18pm Carbon Dioxide Level 27 meq/L 21-33 01/06/15 1:41pm 01/06/15 2:18pm Anion Gap 12 mmol/L 8-16 01/06/15 1:41pm 01/06/15 2:18pm Glucose Level 91 mg/dl 70-99 01/06/15 1:41pm 01/06/15 2:18pm Blood Urea Nitrogen 10 mg/dl 5-21 01/06/15 1:41pm 01/06/15 2:18pm Creatinine 0.99 mg/dl 0.60-1.30 01/06/15 1:41pm 01/06/15 2:18pm Glomerular Filtration Rate Calc > 60 mL/Min > 60 01/06/15 1:41pm 2:18pm The GFR is not validated for use in drug dosing adjustments. Continue to use estimated creatinine clearance per dosing reference text. Chronic Kidney Disease is defined as either kidney damage or a GFR less than 60 ml/min that persists for at least 3 months. Stage 3=30-59 ml/min Stage 4=15-29 ml/min Stage 5=<15 ml/min Alkaline Phosphatase 97 U/L 46-116 01/06/15 1:41pm 01/06/15 2:18pm Total Bilirubin 0.3 mg/dl 0.0-1.2 01/06/15 1:41pm 01/06/15 2:18pm Aspartate Amino Transf (AST/SGOT) 21 U/L 6-37 01/06/15 1:41pm 01/06/15 2:18pm Alanine Aminotransferase (ALT/SGPT) 26 U/L 12-78 01/06/15 1:41pm 2:18pm Total Protein 8.5 g/dl H 6.4-8.2 01/06/15 1:41pm 01/06/15 2:18pm Albumin 4.3 g/dl 3.3-4.5 01/06/15 1:41pm 01/06/15 2:18pm Albumin/Globulin Ratio 1.0 0.7-2.0 01/06/15 1:41pm 01/06/15 2:18pm Calcium Level 9.0 mg/dl 8.6-10.5 01/06/15 1:41pm 01/06/15 2:18pm Lipase 224 U/L 65-230 01/06/15 1:41pm 01/06/15 2:18pm Prothrombin Time 13.0 Seconds 11.5-14.0 01/06/15 1:41pm 01/06/15 2: 13pm INR International Normalized Ratio 0.99 0.87-1.13 01/06/15 1:41pm 05/22 2:13pm Therapeutic Range: Prophylaxis - Thrombosis 2.0-3.0 Mechanical Heart Valves 2.5-3.5 Myocardial Infarction 2.0-3.0 Activated Partial Thromboplast Time 32.2 Seconds 23.6-33.8 01/06/15 1: 41pm 01/06/15 2:13pm Urine Color Yellow Yellow 01/06/15 1:29pm 01/06/15 1:47pm Urine Appearance Clear Clear 01/06/15 1:29pm 01/06/15 1:47pm Urine Glucose Negative Negative 01/06/15 1:29pm 01/06/15 1:47pm Urine Bilirubin Negative Negative 01/06/15 1:29pm 01/06/15 1:47pm Urine Ketones Negative Negative 01/06/15 1:29pm 01/06/15 1:47pm Urine Specific Mears 1.020 1.010-.025 01/06/15 1:29pm 01/06/15 1: 47pm Urine pH 6.0 4.5 - 7.5 01/06/15 1:29pm 01/06/15 1:47pm Urine Protein Negative Negative 01/06/15 1:29pm 01/06/15 1:47pm Urine Urobilinogen 0.2 <=1.0 10/02/15 1:29pm 01/06/15 1:47pm Urine Nitrate Negative Negative 01/06/15 1:29pm 01/06/15 1:47pm Urine Blood Negative Negative 01/06/15 1:29pm 01/06/15 1:47pm Urine Leukocyte Esterase Negative Negative 01/06/15 1:29pm 01/06/15 1 :47pm N/A Not Set 01/06/15 1:29pm 01/06/15 1:47pm No Culture Reflex Ordered. The specimen did not meet the following criteria: * Culture Criteria: * * * * Urinalysis Leukocyte 1+ or > * * Urinalysis Nitrates + * * Microscopic WBC 10 or > * * Microscopic Bacteria 2+ or > * * Microscopic Yeast 2+ or > * Procedures No Known History of Procedures. Encounters Encounter Location Arrival/Admit Date Discharge/Depart Date Attending Provider Departed [facility] 06/22/15 11:39am 06/22/15 1:15pm Jeremy, (ED) Vilma Alvarez MD Discharged Recurring [facility] 05/16/15 3:43pm 06/05/15 Shayy Buchanan DO Departed Emergency [facility] 04/19/15 1:24pm 04/19/15 3:42pm Félix (ED) Osvaldo Grijalva MD Discharged Inpatient [facility] 04/08/15 11:37am 04/08/15 5: 40pm Zack Sorto DO Discharged Emergency [facility] 04/08/15 11:37am 04/08/15 2: 20pm Zack Sorto DO Departed Emergency [facility] 02/14/15 1:43pm 02/14/15 3:20pm Jeremy (ED) Vilma Alvarez MD Departed Emergency [facility] 01/16/15 12:37pm 01/16/15 2:36pm Jeremy (ED) Vilma Alvarez MD Departed Emergency [facility] 01/06/15 12:15pm 01/06/15 3:29pm Jeremy (ED) Vilma Alvarez MD Departed Emergency [facility] 12/27/14 1:27pm 12/27/14 2:45pm Félix (ED) Osvaldo Grijalva MD Encounter Diagnosis [place] Acute exacerbation of chronic low back pain
--- OUTSIDE RECORDS SUMMARY | 2018-08-06 11:56 | XMS REPORT | Continuity of Care Document ---
Author Author [facility] Address [address] [place] [address] Care Team Providers Care Tobacco Wetter Name Role Phone OLIVIA GARCIA PCP Shayy Buchanan PCP Andreia Coats Rndphys Allergies, Adverse Reactions, Alerts Allergen Type Severity [...] Hives November 16, 2017 Y Active Medications Active Medications Medication Dose Units Route Sig Qty Start Date Status Hydrocodone-Acetaminophen [[place]] 1 TAB Oral Every 6 Hours PRN For pain September 26, 2017 Active Levofloxacin [Levaquin] 500 MG Oral Daily September 26, 2017 Active Problem List Active Problems Medical Problem Onset Date Status Hip pain, acute Active Knee pain, left Active Pain in left testicle Active Procedures Procedure Date Status CT abdomen pelvis w con November 16, 2017 completed XR knee LT 3V November 16, 2017 completed Relevant Diagnostic Tests and/or Laboratory Data Laboratory Results Test Date/Time Result Interp. Ref. Range Result Comment White Blood Count November 16, 2017 2:13pm 11.1 10^3/uL High 4.5-11.0 Red Blood Count November 16, 2017 2:13pm 5.21 10^6/uL 4.70-6.00 Hemoglobin November 16, 2017 2:13pm 15.7 g/dL 13.5-17.5 Hematocrit November 16, 2017 2:13pm 45.8 % 41-53 Mean Corpuscular Volume November 16, 2017 2:13pm 87.9 fL 79-99 Mean Corpuscular Hemoglobin November 16, 2017 2:13pm 30.2 pg 25.0-34.0 Mean Corpuscular Hemoglobin Concent November 16, 2017 2:13pm 34.3 g/dL 31.0 -36.0 Red Cell Distribution Width November 16, 2017 2:13pm 13.2 % 11.0-15.0 Platelet Count November 16, 2017 2:13pm 239 10^3 uL 130-400 Mean Platelet Volume November 16, 2017 2:13pm 8.1 fL 7.0-11.0 Neutrophils (%) (Auto) November 16, 2017 2:13pm 79.3 % High 43.0-72.0 Lymphocytes (%) (Auto) November 16, 2017 2:13pm 13.8 % Low 15.0-45.0 Monocytes (%) (Auto) November 16, 2017 2:13pm 6.2 % 1.0-12.0 Eosinophils (%) (Auto) November 16, 2017 2:13pm 0.4 % 0.0-6.0 Basophils (%) (Auto) November 16, 2017 2:13pm 0.3 % 0.0-2.0 Neutrophils # (Auto) November 16, 2017 2:13pm 8.8 10^3 uL High 1.0-8.0 Lymphocytes # (Auto) November 16, 2017 2:13pm 1.5 10^3 uL 1.0-3.0 Monocytes # (Auto) November 16, 2017 2:13pm 0.7 10^3 uL 0.0-1.0 Eosinophils # (Auto) November 16, 2017 2:13pm 0.0 10^3 uL 0.0-0.4 Basophils # (Auto) November 16, 2017 2:13pm 0.0 10^3 uL 0.0-0.2 Urine Color November 16, 2017 2:20pm Yellow Urine Appearance November 16, 2017 2:20pm Clear Urine pH November 16, 2017 2:20pm 5.0 Urine Specific [place] November 16, 2017 2:20pm 1.010 Urine Protein November 16, 2017 2:20pm Negative Urine Glucose (UA) November 16, 2017 2:20pm Negative Urine Ketones November 16, 2017 2:20pm Negative Urine Blood November 16, 2017 2:20pm Negative Urine Nitrite November 16, 2017 2:20pm Negative Urine Bilirubin November 16, 2017 2:20pm Negative Urine Urobilinogen November 16, 2017 2:20pm 0.2 Urine Leukocyte Esterase November 16, 2017 2:20pm Negative Urine Culture Indicated November 16, 2017 2:20pm Not Indicated No Culture Reflex Ordered. The specimen did not meet the following criteria OR contained >25 epithelials, indicating contamination. * Culture Criteria: * * * * Urinalysis Leukocyte 1+ or > * * Urinalysis Nitrates + * * Microscopic WBC 10 or > * * Microscopic Bacteria 2+ or > * * Microscopic Yeast 2+ or > * Sodium Level November 16, 2017 2:13pm 139 mmol/L 135-150 Potassium Level November 16, 2017 2:13pm 4.0 mmol/L 3.4-5.2 Chloride Level November 16, 2017 2:13pm 106 mmol/L 100-112 Carbon Dioxide Level November 16, 2017 2:13pm 22 mEq/L 18-30 Anion Gap November 16, 2017 2:13pm 11 mmol/L 8-11 Blood Urea Nitrogen November 16, 2017 2:13pm 11 mg/dL 5-21 Creatinine November 16, 2017 2:13pm 1.14 mg/dL 0.60-1.30 Glomerular Filtration Rate Calc November 16, 2017 2:13pm > 60 mL/Min The GFR is not validated for use in drug dosing adjustments. Continue to use estimated creatinine clearance per dosing reference text. Chronic Kidney Disease is defined as either kidney damage or a GFR less than 60 ml/min that persists for at least 3 months. Stage 3=30-59 ml/min Stage 4=15-29 ml/min Stage 5=<15 ml/min Glucose Level November 16, 2017 2:13pm 105 mg/dL High 70-99 Calcium Level November 16, 2017 2:13pm 9.2 mg/dL 8.6-10.5 Total Bilirubin November 16, 2017 2:13pm 0.5 mg/dL 0.0-1.2 Aspartate Amino Transf (AST/SGOT) November 16, 2017 2:13pm 19 U/L 6-37 Alanine Aminotransferase (ALT/SGPT) November 16, 2017 2:13pm 24 U/L 12-78 Total Creatine Kinase November 16, 2017 2:17pm 82 U/L 30-200 Total Protein November 16, 2017 2:13pm 7.9 g/dL 6.4-8.2 Albumin November 16, 2017 2:13pm 4.4 g/dL 3.3-4.5 Albumin/Globulin Ratio November 16, 2017 2:13pm 1.3 0.7-2.0 Alkaline Phosphatase November 16, 2017 2:13pm 70 U/L 50-136 Plasma/Serum Ethyl Alcohol November 16, 2017 2:13pm 0 mg/dL 0- Advance Directives Advance Directive Response Recorded Date/Time Advance Directive on File? GIVEN September 26, 2017 7:08pm Chief Complaint and Reason for Visit Encounter Admit Date Chief Complaint Reason for Visit Departed Emergency November 16, 2017 1:57pm Abdominal Pain Hospital Discharge Instructions Additional Discharge Instructions 1. Home to rest 2. Tylenol 500mg one tablet every 4-6 hours as needed for pain 3. Ice to affected areas, do not apply to bare skin 4. Follow up with your PCP as needed. 5. Return to ED for vomiting, blood in stools/urine, increasing pain. Instruction/Education Provided Knee Pain (ED) Hip Pain (ED) Problem: Extremity Injury, Lower Goal: Identify injury. Relief of pain, stabilize. Plan: Refer to patient instructions provided.Problem: Abdominal Pain Goal: Relief of abdominal pain Plan: Refer to patient instructions provided. Hospital Discharge Medications Medication Dose Units Route Sig Qty Days Order Date Status Instructions Hydrocodone-Acetaminophen 1 TAB Oral Every 6 Hours PRN For pain September 26, 2017 Active Levofloxacin 500 MG Oral Daily September 26, 2017 Active Encounters Encounter Facility Location Admit/Visit Date Discharge/Departure Date Attending Provider Departed Emergency [facility] Emergency Department November 16, 2017 1:57pm November 16, 2017 4:10pm Family History Query Response Instance Date Recorded Comment Family History CAD/AL November 16, 2017 6:31pm Functional Status No known functional status. Immunizations No known immunizations. Payers Payer Name Policy Type Covered Green Party Covered Green Party Id Relationship Subscriber Subscriber Id [facility] Medicaid Matt Nye [id number] Self / Same As Patient Matt Nye [id number] Self Pay Plan of Care Instructions Knee Pain (ED) Hip Pain (ED) Problem: Extremity Injury, Lower Goal: Identify injury. Relief of pain, stabilize. Plan: Refer to patient instructions provided.Problem: Abdominal Pain Goal: Relief of abdominal pain Plan: Refer to patient instructions provided. Social History Query Response Date Recorded Comment Recent Travel No November 16, 2017 6:31pm current occupational exposures/hazards No November 16, 2017 6:31pm service No November 16, 2017 6:31pm second hand exposure No November 16, 2017 6:31pm substance use type does not use November 16, 2017 6:31pm Query Response Start Date Stop Date Smoking Status Never smoker Vital Signs Vital Reading Result Reference Range Collection Date/Time Height 6 ft 4 in November 16, 2017 2:00pm Weight 205 lb November 16, 2017 3:03pm Temperature 97.5 F 97.5 F-99.5 F November 16, 2017 2:00pm Pulse 115 BPM 60-90 November 16, 2017 2:00pm Respiration 18 RPM 12-20 November 16, 2017 2:00pm Pulse Oximetry 97 % 90-100 November 16, 2017 2:00pm Blood Pressure Systolic 119 100-160 November 16, 2017 2:00pm Blood Pressure Diastolic 82 50-80 November 16, 2017 2:00pm Body Mass Index 24.9 November 16, 2017 2:00pm
--- OUTSIDE RECORDS SUMMARY | 2018-08-06 11:56 | XMS REPORT | Continuity of Care Document ---
Author Author [facility] Address [address] [place] [address] Care Team Providers Care Records Associate Name Role Phone Kumar Mckeon Jr, Rndphys Unavailable OLIVIA GARCIA PCP Shayy Buchanan PCP Allergies, Adverse Reactions, Alerts Allergen Type Severity [...] Route Sig Qty Start Date Status Hydrocodone-Acetaminophen [[place]] 1 TAB Oral Every 6 Hours PRN [...] November 16, 2017 2:20pm 5.0 Urine Specific [place] November 16, 2017 2:20pm 1.010 Urine Protein [...] 2017 Active Levofloxacin 500 MG Oral Daily 9 September 26, 2017 Active Encounters Encounter Facility Location Admit/Visit Date Discharge/Departure Date Attending Provider Departed Emergency [facility] Emergency Department November 16, 2017 1:57pm November 16, 2017 4:10pm Family History Query Response Instance Date Recorded Comment Family History CAD/ME November 16, 2017 4:01pm Functional Status No known functional status. Immunizations No known immunizations. Payers Payer Name Policy Type Covered Green Party Covered Green Party Id Relationship Subscriber Subscriber Id [facility] Medicaid Matt Nye [id number] Self / Same As Patient Matt Nye [id number] Self Pay Plan of Care Instructions Knee Pain (ED) Hip Pain (ED) Problem: Extremity Injury, Lower Goal: Identify injury. Relief of pain, stabilize. Plan: Refer to patient instructions provided.Problem: Abdominal Pain Goal: Relief of abdominal pain Plan: Refer to patient instructions provided. Social History Query Response Date Recorded Comment Recent Travel No November 16, 2017 4:01pm current occupational exposures/hazards No November 16, 2017 4:01pm service No November 16, 2017 4:01pm second hand exposure No November 16, 2017 4:01pm substance use type does not use November 16, 2017 4:01pm Query Response Start Date Stop Date Smoking [...]
--- OUTSIDE RECORDS SUMMARY | 2018-08-06 11:56 | XMS REPORT | Continuity of Care Document ---
Author Author [facility] Address [address] [place] [address] Care Team Providers Care Datastage Architect Name Role Phone OLIVIA GARCIA MD Unavailable Insurance Providers Payer Name Policy Number Subscriber Name Relationship [facility] [id number] IZZY RAINEY PATIENT/SELF Advance Directives Directive Response Recorded Date/Time Advance Directive Information: AD BROCHURE GIVEN TO PT 04/08/15 2:33pm Chief Complaint and Reason for Visit Reason for Visit LEFT LEG INJURY Problems Medical Problems Problem Onset Date Status Low back pain Unknown Active Concussion Unknown Active Neck sprain Unknown Active Blunt head injury Unknown Active Head contusion Unknown Active Neck strain Unknown Active Post-operative state Unknown Active Post-op bleeding Unknown Active Wound dehiscence Unknown Active Injury of left shoulder Unknown Active Injury by nail gun Unknown Active Strain of left tibialis anterior muscle Unknown Active Medications Medication Dose Route Sig Days/Qty Instructions Order Date Discontinued Date Status [DILANTIN] OPHTHALMIC DAILY 04/24/13 Discontinued Citalopram Hydrobromide (Celexa) 20 MG TABLET 20 MG OPHTHALMIC DAILY 09/27/13 Discontinued Hydroxyzine HCl 50 MG TABLET 50 MG OPHTHALMIC as needed 02/12/13 Discontinued Naproxen Sodium* (Naprosyn<Generic>*) 250 MG TAB 250 MG OPHTHALMIC TWICE DAILY 02/12/13 Discontinued Nicotine Polacrilex (Nicotine Gum) 2 MG GUM 2 MG NOT APPLICABLE 02/12/13 Discontinued Prazosin (Minipress) 2 MG UD.CAP 2 MG NOT APPLICABLE TWICE DAILY 04/24/13 Discontinued Hydrocod 10MG/Actm 325MG (Vicodin 10-325) 1 EACH TABLET 500 MG OPHTHALMIC as needed 02/12/13 Discontinued Phenytoin (Dilantin) 100 MG CAP 300 MG OPHTHALMIC TWICE DAILY Active Asa/Salicylam/Acetaminoph/Caff (Levacet Caplet) 1 EACH TABLET 2 EACH OPHTHALMIC TWICE DAILY 04/24/13 Discontinued Citalopram Hydrobromide (Celexa) 40 MG TABLET 40 MG OPHTHALMIC DAILY Active Hydrocodone 5mg/ACTM 325 mg (Vicodin/Lortab 5-325 MG) 1 UDTAB UD.TAB 1 TAB OPHTHALMIC EVERY 6 HOURS NEEDED PRN PAIN 01/06/15 Discontinued Hydroxyzine HCl 50 MG TABLET 50 MG OPHTHALMIC 4 times daily PRN For ANXIETY 04/08/15 Discontinued Prazosin (Minipress) 2 MG UD.CAP 2 MG OPHTHALMIC TWICE DAILY 05/23 Discontinued Trazodone (Desyrel<Generic>) 50 MG UD.TAB 25 MG OPHTHALMIC Bedtime as needed PRN INSOMNNIA MAY REPEAT IN ONE HOUR IF NEEDED FOR SLEEP Discontinued Levetiracetam 500 MG TABLET 1,000 MG OPHTHALMIC TWICE DAILY Discontinued Naproxen Sodium (Aleve) 220 MG TAB 220 MG OPHTHALMIC TWICE DAILY WITH MEALS 04/08/15 Discontinued Nicotine Polacrilex (Nicorette) 2 MG GUM 2 MG EVERY 1 HR NEEDED 01/06/15 Discontinued Prazosin (Minipress) 2 MG UD.CAP 4 MG OPHTHALMIC BEDTIME TAKES 2 PILLS. Active Acetaminophen 325 MG (Tylenol 325 MG) 1 TAB TAB 2 TAB OPHTHALMIC EVERY 4 HOURS NEEDED PRN PAIN Active MEDICATION RECONCILIATION (Medication Reconciliation) 1 EACH EA 1 EACH OPHTHALMIC ONE TIME ONLY 04/08/15 Discontinued Cyclobenzaprine (Flexeril Tab) 10 MG TAB 1 TAB OPHTHALMIC Q8H PRN PRN MUSCLE SPASMS 30 Qty 09/27/13 01/06/15 Discontinued Hydrocodone 5MG/Acet 325MG ([place] 5-325 Tablet) 1 EACH TABLET 1-2 TAB OPHTHALMIC EVERY 4 HOURS NEEDED PRN PAIN 30 Qty 09/27/13 01/06/15 Discontinued Cyclobenzaprine (Flexeril Tab) 10 MG TAB 1 TAB OPHTHALMIC Q8H PRN PRN MUSCLE SPASMS 15 Qty 03/07/14 01/06/15 Discontinued Cyclobenzaprine (Flexeril Tab) 10 MG TAB 1 TAB OPHTHALMIC Q8H PRN PRN MUSCLE SPASMS 15 Qty 08/28/14 01/06/15 Discontinued Tramadol (Ultram) 50 MG TAB 50 MG OPHTHALMIC EVERY 6 HOURS NEEDED PRN PAIN 12 Qty 08/28/14 01/06/15 Discontinued Cephalexin (Keflex) 500 MG CAPSULE 1 TAB OPHTHALMIC FOUR TIMES DAILY 20 Qty 11/09/14 01/06/15 Discontinued Hydrocodone 5MG/Acet 325MG ([place] 5-325 Tablet) 1 EACH TABLET 1 TAB OPHTHALMIC EVERY 4 HOURS NEEDED PRN PAIN 15 Qty 12/27/14 04/08/15 Discontinued Ondansetron Odt (Zofran Odt) 4 MG TAB 1 TAB OPHTHALMIC EVERY 6 HOURS NEEDED PRN NAUSEA AND VOMITING 10 Qty 01/06/15 04/08/15 Discontinued Hydrocodone 5MG/Acet 325MG ([place] 5-325 Tablet) 1 EACH TABLET 1 TAB OPHTHALMIC EVERY 6 HOURS NEEDED PRN PAIN 12 Qty 01/06/15 01/06/15 Discontinued Hydrocodone 5MG/Acet 325MG ([place] 5-325 Tablet) 1 EACH TABLET 1 TAB OPHTHALMIC EVERY 6 HOURS NEEDED PRN PAIN 10 Qty 01/16/15 04/08/15 Discontinued Hydrocodone 5MG/Acet 325MG ([place] 5-325 Tablet) 1 EACH TABLET 1 TAB OPHTHALMIC EVERY 6 HOURS NEEDED PRN PAIN 10 Qty 02/14/15 04/08/15 Discontinued Clindamycin HCl (Cleocin HCl) 150 MG CAPSULE 300 MG OPHTHALMIC EVERY 6 HOURS 28 Qty 02/14/15 04/08/15 Discontinued Oxycodone HCl/Acetaminophen (Percocet 7.5-325 MG Tablet) 1 EACH TABLET 1-2 TAB OPHTHALMIC EVERY 4 HOURS NEEDED PRN PAIN 30 Qty 04/08/15 Active Oxycodone Cr (Oxycontin Cr) 20 MG TAB.ER.12H 30 MG OPHTHALMIC Q12H PRN PRN PAIN 6 Qty 04/08/15 Active Social History Social History Problem Response Recorded Date/Time Alcohol Use none 09/27/13 1:56pm Drug Use none 09/27/13 1:56pm Hospital Discharge Instructions Reason for Hospitalization: R/O COMPARTMENT SYNDROME Physician: [...] to Pharmacy: NONE Vaccinations Given: None Given Plan of Care Discharge Date 04/08/15 5:40pm Disposition HOME/SELF CARE Instructions/Education Provided Acute Compartment Syndrome Oxycodone Forms Provided DISCHARGE INSTRUCTIONS Prescriptions See Medications Section Functional Status Query Response Date Recorded Mobility: Independent April 08, 2015 2:37pm Toileting: Independent April 08, 2015 2:37pm Bath: Independent April 08, 2015 2:37pm Oral Care: Independent April 08, 2015 2:37pm Dressing: Independent April 08, 2015 2:37pm Eating: Independent April 08, 2015 2:37pm Food Preparation: Independent April 08, 2015 2:37pm Housekeeping: Independent April 08, 2015 2:37pm Transportation: Independent April 08, 2015 2:37pm Allergies, Adverse Reactions, Alerts Allergen Type Severity Reaction Status Last Updated ketorolac tromethamine Allergy Severe Anaphylaxis Active 04/08/15 NSAIDS (NON-STEROIDAL ANTI-INFLAMMA Allergy Unknown Active 04/08/15 MORPHINE Allergy Severe Anaphylaxis Active 04/08/15 PNEUMOCOCCAL VACCINE Allergy Intermediate BROKEOUT/SWELLING Active TOMATO Allergy Unknown Active 04/08/15 Immunizations Name Date Given Type *Flu Shot: Historical *Tetanus Shot: Up To Date Historical Vital Signs Vital Reading Collection Date/Time Result Blood Pressure 04/08/15 5:10pm 112/71 Patient Temperature 04/08/15 5:10pm 97.8 Temperature Source 04/08/15 11:49am TEMP Respiratory Rate 04/08/15 5:10pm 20 Pulse Rate 04/08/15 5:10pm 87 Bedside Pulse Oximetry 04/08/15 5:10pm 97 Height 04/08/15 2:37pm 193.04 cm Height 04/08/15 2:37pm 6 ft 4 in Weight 04/08/15 2:37pm 89.584 kg Weight 04/08/15 2:37pm 197 lb 8 oz Body Mass Index 04/08/15 2:37pm 24.0 Procedures No Known History of Procedures. Results Test Source Date Result Interp. Ref. Range Comments Band Neutrophils 04/08/15 3 % 0 - 10 Eosinophils (Manual) 04/08/15 1 % 0 - 5 Hematocrit 04/08/15 40.6 % L 41 - 53 Hemoglobin 04/08/15 13.6 g/dl 13.5 - 17.5 Lymphocytes (Manual) 04/08/15 13 % L 15 - 45 Mean Corpuscular Hemoglobin 04/08/15 29.9 pg 25.0 - 34.0 Mean Corpuscular Hemoglobin Concent 04/08/15 33.5 g/dL 31.0 - 36.0 Mean Corpuscular Volume 04/08/15 89.3 fL 80 - 100 Mean Platelet Volume 04/08/15 8.0 fL 7.0 - 11.0 Monocytes (Manual) 04/08/15 4 % 0 - 10 Neutrophils (Manual) 04/08/15 79 % H 50 - 65 Platelet Count 04/08/15 194 10^3/uL 130 - 400 Red Blood Count 04/08/15 4.55 10^6/uL L 4.70 - 6.00 Red Cell Distribution Width 04/08/15 13.5 % 11.0 - 15.0 White Blood Count 04/08/15 8.9 10^3/uL 4.5 - 11.0 Alanine Aminotransferase (ALT/SGPT) 04/08/15 26 U/L 12 - 78 Albumin 04/08/15 4.0 g/dl 3.3 - 4.5 Albumin/Globulin Ratio 04/08/15 1.1 0.7 - 2.0 Alkaline Phosphatase 04/08/15 84 U/L 46 - 116 Anion Gap 04/08/15 8 mmol/L 8 - 16 Aspartate Amino Transf (AST/SGOT) 04/08/15 31 U/L 6 - 37 Blood Urea Nitrogen 04/08/15 7 mg/dl 5 - 21 Calcium Level 04/08/15 8.5 mg/dl L 8.6 - 10.5 Carbon Dioxide Level 04/08/15 28 meq/L 21 - 33 Chloride Level 04/08/15 104 mmol/L 100 - 112 Creatinine 04/08/15 1.03 mg/dl 0.60 - 1.30 Glomerular Filtration Rate Calc 04/08/15 > 60 mL/Min > 60 - Glucose Level 04/08/15 98 mg/dl 70 - 99 Potassium Level 04/08/15 4.0 mmol/L 3.4 - 5.2 Sodium Level 04/08/15 140 mmol/L 135 - 150 Total Bilirubin 04/08/15 0.4 mg/dl 0.0 - 1.2 Total Protein 04/08/15 7.6 g/dl 6.4 - 8.2 Band Neutrophils 04/08/15 3 % 0 - 10 Eosinophils (Manual) 04/08/15 1 % 0 - 5 Hematocrit 04/08/15 40.6 % L 41 - 53 Hemoglobin 04/08/15 13.6 g/dl 13.5 - 17.5 Lymphocytes (Manual) 04/08/15 13 % L 15 - 45 Mean Corpuscular Hemoglobin 04/08/15 29.9 pg 25.0 - 34.0 Mean Corpuscular Hemoglobin Concent 04/08/15 33.5 g/dL 31.0 - 36.0 Mean Corpuscular Volume 04/08/15 89.3 fL 80 - 100 Mean Platelet Volume 04/08/15 8.0 fL 7.0 - 11.0 Monocytes (Manual) 04/08/15 4 % 0 - 10 Neutrophils (Manual) 04/08/15 79 % H 50 - 65 Platelet Count 04/08/15 194 10^3/uL 130 - 400 Red Blood Count 04/08/15 4.55 10^6/uL L 4.70 - 6.00 Red Cell Distribution Width 04/08/15 13.5 % 11.0 - 15.0 White Blood Count 04/08/15 8.9 10^3/uL 4.5 - 11.0 Alanine Aminotransferase (ALT/SGPT) 04/08/15 26 U/L 12 - 78 Albumin 04/08/15 4.0 g/dl 3.3 - 4.5 Albumin/Globulin Ratio 04/08/15 1.1 0.7 - 2.0 Alkaline Phosphatase 04/08/15 84 U/L 46 - 116 Anion Gap 04/08/15 8 mmol/L 8 - 16 Aspartate Amino Transf (AST/SGOT) 04/08/15 31 U/L 6 - 37 Blood Urea Nitrogen 04/08/15 7 mg/dl 5 - 21 Calcium Level 04/08/15 8.5 mg/dl L 8.6 - 10.5 Carbon Dioxide Level 04/08/15 28 meq/L 21 - 33 Chloride Level 04/08/15 104 mmol/L 100 - 112 Creatinine 04/08/15 1.03 mg/dl 0.60 - 1.30 Glomerular Filtration Rate Calc 04/08/15 > 60 mL/Min > 60 - Glucose Level 04/08/15 98 mg/dl 70 - 99 Potassium Level 04/08/15 4.0 mmol/L 3.4 - 5.2 Sodium Level 04/08/15 140 mmol/L 135 - 150 Total Bilirubin 04/08/15 0.4 mg/dl 0.0 - 1.2 Total Protein 04/08/15 7.6 g/dl 6.4 - 8.2 Activated Partial Thromboplast Time 01/06/15 32.2 Seconds 23.6 - 33.8 INR International Normalized Ratio 01/06/15 0.99 0.87 - 1.13 Prothrombin Time 01/06/15 13.0 Seconds 11.5 - 14.0 Urine Appearance 01/06/15 Clear Clear - Urine Bilirubin 01/06/15 Negative Negative - Urine Blood 01/06/15 Negative Negative - Urine Color 01/06/15 Yellow Yellow - Urine Glucose 01/06/15 Negative Negative - Urine Ketones 01/06/15 Negative Negative - Urine Leukocyte Esterase 01/06/15 Negative Negative - Urine Nitrate 01/06/15 Negative Negative - Urine Protein 01/06/15 Negative Negative - Urine Specific [place] 01/06/15 1.020 1.010 - .025 Urine Urobilinogen 01/06/15 0.2 <=1.0 - Urine pH 01/06/15 6.0 4.5 - 7.5 Lipase 01/06/15 224 U/L 65 - 230 Encounters Encounter Location Date/Time Discharged Inpatient [facility] 04/08/15 5:40pm Discharged Emergency [facility] 04/08/15 2:20pm Departed Emergency [facility] 02/14/15 3:20pm Departed Emergency [facility] 01/16/15 2:36pm Departed Emergency [facility] 01/06/15 3:29pm Departed Emergency [facility] 12/27/14 2:45pm Departed Emergency [facility] 11/10/14 0:11am Recent Diagnosis Low back pain Concussion Neck sprain Blunt head injury Head contusion Neck strain Post-operative state Post-op bleeding Wound dehiscence Injury of left shoulder Injury by nail gun Strain of left tibialis anterior muscle
--- OUTSIDE RECORDS SUMMARY | 2018-08-06 11:57 | XMS REPORT | Continuity of Care Document ---
Author Author [facility] Address Unknown Phone Unavailable Care Team Providers Care Filenet Architect Name Role Phone DOCTOR, OUT OF TOWN Unavailable Unavailable Insurance Providers Payer Name Policy Number Subscriber Name Relationship [facility] Administration [id number] IZZY RAINEY PATIENT/SELF Advance Directives Directive Response Recorded Date/Time Advance Directive Information: AD BROCHURE GIVEN TO PT 01/06/15 12:16pm Chief Complaint and Reason for Visit Reason for Visit Postoperative state Postoperative hemorrhage Problems Medical Problems Problem Onset Date Status Low back pain Unknown Active Concussion Unknown Active Neck sprain Unknown Active Blunt head injury Unknown Active Head contusion Unknown Active Neck strain Unknown Active Post-operative state Unknown Active Post-op bleeding Unknown Active Medications Medication Dose Route Sig [...] OPHTHALMIC 4 times daily PRN For ANXIETY Active Prazosin (Minipress) 2 MG UD.CAP 2 MG OPHTHALMIC TWICE DAILY Active Trazodone (Desyrel<Generic>) 50 MG UD.TAB 25 MG OPHTHALMIC Bedtime as needed PRN INSOMNNIA MAY REPEAT IN ONE HOUR IF NEEDED FOR SLEEP Active Levetiracetam 500 MG TABLET 1,000 MG OPHTHALMIC TWICE DAILY Discontinued Naproxen Sodium (Aleve) 220 MG TAB 220 MG OPHTHALMIC TWICE DAILY WITH MEALS Active Nicotine Polacrilex (Nicorette) 2 MG GUM 2 MG EVERY 1 HR NEEDED 01/06/15 Discontinued Cyclobenzaprine (Flexeril Tab) 10 MG TAB 1 TAB OPHTHALMIC Q8H PRN PRN MUSCLE SPASMS 30 Qty 09/27/13 01/06/15 Discontinued Hydrocodone 5MG/Acet 325MG ([place] 5-325 Tablet) 1 EACH TABLET 1-2 TAB [...] Qty 11/09/14 01/06/15 Discontinued Hydrocodone 5MG/Acet 325MG ([place] 5-325 Tablet) 1 EACH TABLET 1 TAB OPHTHALMIC EVERY 4 HOURS NEEDED PRN PAIN 15 Qty 12/27/14 Active Ondansetron Odt (Zofran Odt) 4 MG TAB 1 TAB OPHTHALMIC EVERY 6 HOURS NEEDED PRN NAUSEA AND VOMITING 10 Qty 01/06/15 Active Hydrocodone 5MG/Acet 325MG ([place] 5-325 Tablet) 1 EACH TABLET 1 TAB OPHTHALMIC EVERY 6 HOURS NEEDED PRN PAIN 12 Qty 01/06/15 01/06/15 Discontinued Social History Social History Problem Response Recorded Date/Time Alcohol Use none 09/27/13 1:56pm Drug Use none 09/27/13 1:56pm Hospital Discharge Instructions No hospital discharge instructions. Plan of Care Discharge Date 01/06/15 3:29pm Disposition HOME/SELF CARE Condition at Discharge Improved Instructions/Education Provided DI for Postoperative Pain Prescriptions See Medications Section Referrals OUT OF TOWN DOCTOR Additional Instructions/Education Follow up on Friday if problems persist. Return to the ER if worsening. Care Plan and Goals Problem: Abdominal Pain Goal: Relief of abdominal pain. Plan: Refer to patient instructions provided. Functional Status No functional status results. Allergies, Adverse Reactions, Alerts Allergen Type Severity Reaction Status Last Updated ketorolac tromethamine Allergy Unknown Active 09/13/10 MORPHINE Allergy Unknown Active 09/13/10 PNEUMOCOCCAL VACCINE Allergy Unknown Active 08/01/12 TOMATO Allergy Unknown Active 09/27/13 Immunizations Name Date Given Type *Flu Shot: Historical *Tetanus Shot: Up To Date Historical Vital Signs Vital Reading Collection Date/Time Result Blood Pressure 01/06/15 12:15pm 119/84 Patient Temperature 01/06/15 12:15pm 98.8 Temperature Source 01/06/15 12:15pm TEMP Respiratory Rate 01/06/15 12:15pm 16 Pulse Rate 01/06/15 12:15pm 90 Bedside Pulse Oximetry 01/06/15 12:15pm 100 Height 01/06/15 12:15pm 6 ft 4 in Weight 01/06/15 12:15pm 205 lb Body Mass Index 01/06/15 12:15pm 25.0 Procedures No Known History of Procedures. Results Test Source Date Result Interp. Ref. Range Comments Activated Partial Thromboplast Time 01/06/15 32.2 Seconds [...] Protein 01/06/15 Negative Negative - Urine Specific [place] 01/06/15 1.020 1.010 - .025 Urine Urobilinogen 01/06/15 0.2 <=1.0 - Urine pH 01/06/15 6.0 4.5 - 7.5 Alanine Aminotransferase (ALT/SGPT) 01/06/15 26 U/L 12 - 78 Albumin 01/06/15 4.3 g/dl 3.3 - 4.5 Albumin/Globulin Ratio 01/06/15 1.0 0.7 - 2.0 Alkaline Phosphatase 01/06/15 97 U/L 46 - 116 Anion Gap 01/06/15 12 mmol/L 8 - 16 Aspartate Amino Transf (AST/SGOT) 01/06/15 21 U/L 6 - 37 Blood Urea Nitrogen 01/06/15 10 mg/dl 5 - 21 Calcium Level 01/06/15 9.0 mg/dl 8.6 - 10.5 Carbon Dioxide Level 01/06/15 27 meq/L 21 - 33 Chloride Level 01/06/15 103 mmol/L 100 - 112 Creatinine 01/06/15 0.99 mg/dl 0.60 - 1.30 Glomerular Filtration Rate Calc 01/06/15 > 60 mL/Min > 60 - Glucose Level 01/06/15 91 mg/dl 70 - 99 Lipase 01/06/15 224 U/L 65 - 230 Potassium Level 01/06/15 4.3 mmol/L 3.4 - 5.2 Sodium Level 01/06/15 142 mmol/L 135 - 150 Total Bilirubin 01/06/15 0.3 mg/dl 0.0 - 1.2 Total Protein 01/06/15 8.5 g/dl H 6.4 - 8.2 Hematocrit 01/06/15 45.3 % 41 - 53 Hemoglobin 01/06/15 15.2 g/dl 13.5 - 17.5 Lymphocytes (Manual) 01/06/15 20 % 15 - 45 Mean Corpuscular Hemoglobin 01/06/15 29.7 pg 25.0 - 34.0 Mean Corpuscular Hemoglobin Concent 01/06/15 33.5 g/dL 31.0 - 36.0 Mean Corpuscular Volume 01/06/15 88.6 fL 80 - 100 Mean Platelet Volume 01/06/15 8.2 fL 7.0 - 11.0 Monocytes (Manual) 01/06/15 9 % 0 - 10 Neutrophils (Manual) 01/06/15 71 % H 50 - 65 Platelet Count 01/06/15 233 10^3/uL 130 - 400 Red Blood Count 01/06/15 5.12 10^6/uL 4.70 - 6.00 Red Cell Distribution Width 01/06/15 13.4 % 11.0 - 15.0 White Blood Count 01/06/15 8.5 10^3/uL 4.5 - 11.0 Encounters Encounter Location Date/Time Departed Emergency [facility] 01/06/15 3:29pm Departed Emergency [facility] 12/27/14 2:45pm Departed Emergency [facility] 11/10/14 0:11am Departed Emergency [facility] 08/28/14 8:48pm Recent Diagnosis Postoperative state Postoperative hemorrhage
--- OUTSIDE RECORDS SUMMARY | 2018-08-06 11:57 | XMS REPORT | Continuity of Care Document ---
Author Author [facility] Address [address] [place] [address] Care Team Providers Care Reliability Specialist Name Role Phone DOCTOR, OUT OF TOWN Unavailable Unavailable Insurance Providers Payer Name Policy Number Subscriber Name Relationship [employer] [id number] IZZY RAINEY PATIENT/SELF Advance Directives Directive Response Recorded Date/Time Advance Directive Information: AD BROCHURE GIVEN TO PT 02/14/15 1:43pm Chief Complaint and Reason for Visit Reason for Visit Injury of left shoulder Injury by nail gun Problems Medical Problems Problem Onset Date Status Low back pain Unknown Active Concussion Unknown Active Neck sprain Unknown Active Blunt head injury Unknown Active Head contusion Unknown Active Neck strain Unknown Active Post-operative state Unknown Active Post-op bleeding Unknown Active Wound dehiscence Unknown Active Injury of left shoulder Unknown Active Injury by nail gun Unknown Active Medications Medication Dose Route Sig [...] Qty 09/27/13 01/06/15 Discontinued Hydrocodone 5MG/Acet 325MG ([place] 5-325 Tablet) 1 EACH TABLET 1-2 TAB [...] Qty 11/09/14 01/06/15 Discontinued Hydrocodone 5MG/Acet 325MG ([place] 5-325 Tablet) 1 EACH TABLET 1 TAB OPHTHALMIC EVERY 4 HOURS NEEDED PRN PAIN 15 Qty 12/27/14 Active Ondansetron Odt (Zofran Odt) 4 MG TAB 1 TAB OPHTHALMIC EVERY 6 HOURS NEEDED PRN NAUSEA AND VOMITING 10 Qty 01/06/15 Active Hydrocodone 5MG/Acet 325MG ([place] 5-325 Tablet) 1 EACH TABLET 1 TAB OPHTHALMIC EVERY 6 HOURS NEEDED PRN PAIN 12 Qty 01/06/15 01/06/15 Discontinued Hydrocodone 5MG/Acet 325MG ([place] 5-325 Tablet) 1 EACH TABLET 1 TAB OPHTHALMIC EVERY 6 HOURS NEEDED PRN PAIN 10 Qty 01/16/15 Active Hydrocodone 5MG/Acet 325MG ([place] 5-325 Tablet) 1 EACH TABLET 1 TAB OPHTHALMIC EVERY 6 HOURS NEEDED PRN PAIN 10 Qty 02/14/15 Active Clindamycin HCl (Cleocin HCl) 150 MG CAPSULE 300 MG OPHTHALMIC EVERY 6 HOURS 28 Qty 02/14/15 Active Social History Social History Problem Response Recorded Date/Time Alcohol Use none 09/27/13 1:56pm Drug Use none 09/27/13 1:56pm Hospital Discharge Instructions No hospital discharge instructions. Plan of Care Discharge Date 02/14/15 3:20pm Disposition HOME/SELF CARE Condition at Discharge Improved Instructions/Education Provided DI for Removal of Foreign Body From Skin Prescriptions See Medications Section Referrals OUT OF TOWN DOCTOR Additional Instructions/Education Follow up in five to seven days for a wound recheck. Return to the ER as needed. Care Plan and Goals Problem: Shoulder Injury Goal: Rule out or identify any shoulder injury. Relief of pain, stabilize. Plan: Refer to patient instructions provided. Functional [...] Vital Reading Collection Date/Time Result Blood Pressure 02/14/15 3:22pm 128/83 Patient Temperature 02/14/15 1:43pm 97.5 Temperature Source 02/14/15 1:43pm ORL Respiratory Rate 02/14/15 3:22pm 18 Pulse Rate 02/14/15 3:22pm 109 Bedside Pulse Oximetry 02/14/15 3:22pm 95 Height 02/14/15 1:43pm 6 ft 4 in Weight 02/14/15 1:43pm 205 lb Body Mass Index 02/14/15 1:43pm 25.0 Procedures No Known History of Procedures. [...] Protein 01/06/15 Negative Negative - Urine Specific [place] 01/06/15 1.020 1.010 - .025 Urine Urobilinogen [...] 11.0 Encounters Encounter Location Date/Time Departed Emergency [facility] 02/14/15 3:20pm Departed Emergency [facility] 01/16/15 2:36pm Departed Emergency [facility] 01/06/15 3:29pm Departed Emergency [facility] 12/27/14 2:45pm Departed Emergency [facility] 11/10/14 0:11am Departed Emergency [facility] 08/28/14 8:48pm Recent Diagnosis Injury of left shoulder Injury by nail gun
--- OUTSIDE RECORDS SUMMARY | 2018-08-06 11:57 | XMS REPORT | Continuity of Care Document ---
Author Author [facility] Address Unknown Phone Unavailable Care Team Providers Care Nurse Practitioner Per Diem Name Role Phone DOCTOR, OUT OF TOWN Unavailable Unavailable Insurance Providers Payer Name Policy Number Subscriber Name Relationship [facility] Administration [id number] IZZY RAINEY PATIENT/SELF Advance Directives Directive Response Recorded Date/Time Advance Directive Information: AD BROCHURE GIVEN TO PT 12/27/14 1:27pm Chief Complaint and Reason for Visit Reason for Visit Head contusion Strain of neck muscle Problems Medical Problems Problem Onset Date Status Low back pain Unknown Active Concussion Unknown Active Neck sprain Unknown Active Blunt head injury Unknown Active Head contusion Unknown Active Neck strain Unknown Active Medications Medication Dose Route Sig [...] OPHTHALMIC EVERY 6 HOURS NEEDED PRN PAIN Active Hydroxyzine HCl 50 MG TABLET 50 MG OPHTHALMIC 4 times daily PRN For ANXIETY Active Prazosin (Minipress) 2 MG UD.CAP 2 MG OPHTHALMIC TWICE DAILY Active Trazodone (Desyrel<Generic>) 50 MG UD.TAB 25 MG OPHTHALMIC Bedtime as needed PRN INSOMNNIA MAY REPEAT IN ONE HOUR IF NEEDED FOR SLEEP Active Levetiracetam 500 MG TABLET 1,000 MG OPHTHALMIC TWICE DAILY Active Naproxen Sodium (Aleve) 220 MG TAB 220 MG OPHTHALMIC TWICE DAILY WITH MEALS Active Nicotine Polacrilex (Nicorette) 2 MG GUM 2 MG EVERY 1 HR NEEDED Active Cyclobenzaprine (Flexeril Tab) 10 MG TAB 1 TAB OPHTHALMIC Q8H PRN PRN MUSCLE SPASMS 30 Qty 09/27/13 Active Hydrocodone 5MG/Acet 325MG ([place] 5-325 Tablet) 1 EACH TABLET 1-2 TAB OPHTHALMIC EVERY 4 HOURS NEEDED PRN PAIN 30 Qty 14 Active Cyclobenzaprine (Flexeril Tab) 10 MG TAB 1 TAB OPHTHALMIC Q8H PRN PRN MUSCLE SPASMS 15 Qty 03/07/14 Active Cyclobenzaprine (Flexeril Tab) 10 MG TAB 1 TAB OPHTHALMIC Q8H PRN PRN MUSCLE SPASMS 15 Qty 15 Active Tramadol (Ultram) 50 MG TAB 50 MG OPHTHALMIC EVERY 6 HOURS NEEDED PRN PAIN 12 Qty 15 Active Cephalexin (Keflex) 500 MG CAPSULE 1 TAB OPHTHALMIC FOUR TIMES DAILY 20 Qty 11/09/14 Active Hydrocodone 5MG/Acet 325MG ([place] 5-325 Tablet) 1 EACH TABLET 1 TAB OPHTHALMIC EVERY 4 HOURS NEEDED PRN PAIN 15 Qty 12/27/14 Active Social History Social History Problem Response Recorded Date/Time Alcohol Use none 09/27/13 1:56pm Drug Use none 09/27/13 1:56pm Hospital Discharge Instructions No hospital discharge instructions. Plan of Care Discharge Date 12/27/14 2:45pm Disposition [facility] Condition at Discharge Stable Instructions/Education Provided DI for Concussion Neck Sprain Prescriptions See Medications Section Referrals OUT OF TOWN DOCTOR Additional Instructions/Education Ice packs neck and affected areas for discomfort. Take pain medication if needed for discomfort. Follow up with your doctor if your pain persists. Care Plan and Goals Problem: Head Injury Goal: Rule out or identify any head injury. Relief of pain, stabilize. Plan: Refer to patient instructions provided. Functional Status No functional status results. Allergies, Adverse Reactions, Alerts Allergen Type Severity Reaction Status Last Updated ketorolac tromethamine Allergy Unknown Active 09/13/10 MORPHINE Allergy Unknown Active 09/13/10 PNEUMOCOCCAL VACCINE Allergy Unknown Active 08/01/12 TOMATO Allergy Unknown Active 09/27/13 Immunizations Name Date Given Type *Flu Shot: Unknown Historical *Tetanus Shot: Up To Date Historical Vital Signs Vital Reading Collection Date/Time Result Blood Pressure 12/27/14 2:45pm 127/88 Patient Temperature 12/27/14 1:37pm 98.1 Temperature Source 12/27/14 1:37pm TEMP Respiratory Rate 12/27/14 2:45pm 18 Pulse Rate 12/27/14 2:45pm 85 Bedside Pulse Oximetry 12/27/14 2:45pm 99 Height 12/27/14 1:37pm 6 ft 4 in Weight 12/27/14 1:37pm 205 lb Body Mass Index 12/27/14 1:37pm 25.0 Procedures No Known History of Procedures. Results No Known Relevant Diagnostic Tests, Laboratory Data and/or Discharge Summary. Encounters Encounter Location Date/Time Departed [facility] 12/27/14 2:45pm Departed [facility] 11/10/14 0:11am Departed [facility] 08/28/14 8:48pm Recent Diagnosis Head contusion Strain of neck muscle
--- OUTSIDE RECORDS SUMMARY | 2018-08-06 11:57 | XMS REPORT | Continuity of Care Document ---
Author Organization Unknown Address [address] [place] [address] Care Team Providers Care Client Services Associate Name Role Phone OLIVIA GARCIA MD Unavailable Insurance Providers Payer Name Policy Number Subscriber Name Relationship [employer] [id number] IZZY RAINEY PATIENT/SELF Advance Directives Directive Response Recorded Date/Time Advance Directive Information: AD BROCHURE GIVEN TO PT 11/25/15 8:09pm Chief Complaint and Reason for Visit Reason for Visit FOOT INJURY Problems Active Medical Problems Problem Onset Date [...] chronic low back pain Unknown 06/22/15 Active Puncture wound Unknown 11/25/15 Active Nail wound of right foot Unknown 11/25/15 Active Medications Current Home Medications Medication Dose Units Route Directions Days/Qty Instructions Start Date Acetaminophen 325 MG (Tylenol 325 MG) 1 TAB TAB 2 TAB BY MOUTH EVERY 4 HOURS NEEDED PRN PAIN Cephalexin (Keflex) 500 MG CAPSULE 500 MG BY MOUTH FOUR TIMES DAILY 11/25/15 Citalopram Hydrobromide (Celexa) 40 MG TABLET 40 MG BY MOUTH DAILY Hydrocodone 5MG/Acet 325MG ([place] 5-325 Tablet) 1 EACH TABLET 1 TAB BY MOUTH EVERY 6 HOURS NEEDED PRN PAIN 10 06/22/15 Oxycodone 5 MG W/Actm 325 MG (Percocet 5/325) 1 EA UD.TAB 1 TAB BY MOUTH EVERY 6 HOURS PRN PAIN 10 11/25/15 Oxycodone Cr (Oxycontin Cr) 20 MG TAB.ER.12H [...] TABLET 1 TAB BY MOUTH TWICE DAILY 06/22/15 Past Home Medications Medication Directions Ordered [...] as needed Unknown Discontinued Hydrocodone 5MG/Acet 325MG ([place] 5-325 Tablet) 1 Each Tablet Tablet, 1 Tab By Mouth EVERY 4 HOURS NEEDED PRN PAIN 12/27/14 Discontinued Hydrocodone 5MG/Acet 325MG ([place] 5-325 Tablet) 1 Each Tablet Tablet, 1 Tab By Mouth EVERY 6 HOURS NEEDED PRN PAIN 01/16/15 Discontinued Hydrocodone 5MG/Acet 325MG ([place] 5-325 Tablet) 1 Each Tablet Tablet, 1 Tab By Mouth EVERY 6 HOURS NEEDED PRN PAIN 02/14/15 Discontinued Hydrocodone 5MG/Acet 325MG ([place] 5-325 Tablet) 1 Each Tablet Tablet, 1-2 Tab Po EVERY 4 HOURS NEEDED PRN PAIN 09/27/13 Discontinued Hydrocodone 5MG/Acet 325MG ([place] 5-325 Tablet) 1 Each Tablet Tablet, 1 [...] Alcohol Use none 09/27/13 Hospital Discharge Instructions No hospital discharge instructions. Plan of Care Discharge Date 11/25/15 Disposition HOME/SELF CARE Instructions/Education Provided DI for Puncture Wound Prescriptions See Medications Section Referrals OLIVIA GARCIA MD - Zack Sorto DO - Functional Status No functional status results. Allergies, Adverse Reactions, Alerts Allergen Type Severity Reaction Status Last Updated NSAIDS (NON-STEROIDAL ANTI-INFLAMMA Allergy Unknown Active 04/08/15 MORPHINE Allergy Severe Anaphylaxis Active 04/08/15 KETOROLAC Allergy Severe ANAPHYLAXIS Active 10/17/15 PNEUMOCOCCAL VACCINE Allergy Intermediate BROKEOUT/SWELLING Active TOMATO Allergy Unknown Active 04/08/15 Immunizations Name Date Given Type *Flu Shot: Historical *Tetanus Shot: Greater than 2 Years Historical Vital Signs Vital Reading Collection Date/Time Result Blood Pressure 11/26/15 6:04am 107/76 Patient Temperature 11/26/15 6:04am 98.1 Temperature Source 11/25/15 8:20pm Oral Respiratory Rate 11/26/15 6:04am 16 Pulse Rate 11/26/15 6:04am 82 Bedside Pulse Oximetry 11/26/15 6:04am 100 Height 11/25/15 8:20pm 6 ft 4 in Weight 11/25/15 8:20pm 205 lb Body Mass Index 11/25/15 8:20pm 25.[address] [id number] ED PHYSICIAN DOCUMENTATION Patient Name: IZZY RAINEY : 76 Unit #: [id number] Patient's Service Date: 11/25/15 ED Physician: Carlos Ray MD Primary Physician: OLIVIA GARCIA MD History of Present Illness General Chief Complaint Foot Injury Stated Complaint FOOT INJURY Time Seen by Provider [id number] Source patient History of Present Illness Initial Comments nail in the right foot, from nailgun machine Location generalized (right foot ) Allergies Coded Allergies: KETOROLAC (Severe, ANAPHYLAXIS 10/17/15) MORPHINE (Severe, Anaphylaxis 04/08/15) PNEUMOCOCCAL VACCINE (Intermediate, BROKEOUT/SWELLING 04/08/15) NSAIDS (NON-STEROIDAL ANTI-INFLAMMA (04/08/15) TOMATO (04/08/15) Home Medications Active Scripts Prednisone 1 TAB BY MOUTH BID #10 UD.TAB Prov: 06/22/15 Hydrocodone 5MG/Acet 325MG ([place] 5-325 Tablet) 1 TAB BY MOUTH Q6H PRN PRN PAIN #10 TAB Prov: 06/22/15 Oxycodone HCl/Acetaminophen (Percocet 7.5-325 MG Tablet) 1-2 TAB BY MOUTH Q4H PRN PRN PAIN #30 TAB Prov: 04/08/15 Oxycodone Cr (Oxycontin Cr) 30 MG BY MOUTH Q12H PRN PRN PAIN #6 TAB Prov: 04/08/15 Reported Medications Phenytoin (Dilantin) 300 MG BY MOUTH BID Citalopram Hydrobromide (Celexa) 40 MG BY MOUTH DAILY Prazosin (Minipress) 4 MG BY MOUTH BEDTIME Acetaminophen 325 MG (Tylenol 325 MG) 2 TAB BY MOUTH Q4H PRN PRN PAIN Review of Systems Review of Systems Was ROS Completed? Yes Cardiovascular Denies other (peripheral pulse palaple ) Musculoskeletal Reports muscle pain, Denies neck pain, Denies back pain, Denies joint pain, Denies joint swelling, Denies muscle stiffness, Denies other (able to move his toes aganist ) Neurological Reports tingling (right foot ), Denies headache, Denies numbness, Denies paresthesia, Denies tonic clonic movement, Denies tremors, Denies weakness (focal), Denies syncope, Denies decreased responsive Past Medical History Past Medical History Medical History traumatic brain injury degenerative disc disease episodic back pain Surgical History vasectomy abdominal surgery after trauma Psychosocial History depression, post traumatic stress Social History Smoker Former smoker (chews tobacco) Physical Exam Physical Exam Nursing Assessment Reviewed Yes Initial Vital Signs Vital Signs Result Date Time Pulse Ox 100 11/25 2019 B/P 122/92 11/25 2019 Temp 98.1 11/25 2019 Pulse 79 11/25 2019 Resp 11/24 Constitutional well developed, mild distress Musculoskeletal gait WNL, normal strength, no vertebral tenderness, nail tip between the great toe and second toe Skin puncture wound between great toe and second toe Results Results Radiology nail , no bone fracture Progress Note Medications Medications Medications Given in ED Sig/[place] Start time Last Medication Dose Route Stop Time Status Admin/ Admin Dose Diphenhydramine HCl 25 MG NOW ONE 11/24 2020 DC 11/24 (Benadryl*) IV 11/24 25 MG Hydromorphone HCl 1 MG NOW ONE 11/24 2034 DC 11/24 (Dilaudid*) IV 11/24 1 MG Progress Note Progress Note Progress Note wound injected with marcaine 0.5% 10 cc , nail was pulled out, no active bleeding , pt able to move his toes in all direction, normal sensation CT Head Ordered Was CT Head ordered? No Departure Departure Clinical Impression Primary Impression: Puncture wound Secondary Impressions: Nail wound of right foot Qualifiers: Encounter type: initial encounter Qualified Code: S91.331A - uncture wound without foreign body, right foot, initial encounter Time of Disposition 2115 Disposition HOME/SELF CARE Smoking Education Indicated No Patient Instructions DI for Puncture Wound Referrals OLIVIA GARCIA MD (PCP/Family) Zack Sorto DO Prescriptions Current Visit Scripts Oxycodone 5 MG W/Actm 325 MG (Percocet 5/325) 1 TAB BY MOUTH Q6H PRN PAIN #10 TAB Cephalexin (Keflex) 500 MG BY MOUTH QID #20 CAP Carlos Ray MD Electronically Signed 11/25/150 Procedures No Known History of Procedures. Encounters Encounter Location Arrival/Admit Date Discharge/Depart Date Attending Provider Departed Emergency [facility] 11/25/15 8:07pm 11/25/15 10:05pm Carlos Ray MD Encounter Diagnosis Puncture wound Nail wound of right foot
--- OUTSIDE RECORDS SUMMARY | 2018-08-06 11:58 | XMS REPORT | Continuity of Care Document ---
Author Author [facility] Address [address] [place] [address] Care Team Providers Care Renal Dietitian Name Role Phone Radha Buchanannifer Rudi FUENTES Unavailable Insurance Providers Payer Name Policy Number Subscriber Name Relationship [employer] Medicaid [id number] IZZY RAINEY PATIENT/SELF Advance Directives Directive Response Recorded Date/Time Advance Directive Information: AD BROCHURE GIVEN TO PT 02/21/16 11:25am Problems Active Medical Problems Problem Onset Date Recorded Date Status Post-operative state Unknown 01/06/15 Active Post-op bleeding Unknown 01/06/15 Active Wound dehiscence Unknown 01/16/15 Active Injury of left shoulder Unknown 02/14/15 Active Injury by nail gun Unknown 02/14/15 Active Contusion of leg, left Unknown 04/19/15 Active Fall Unknown 06/22/15 Active Acute exacerbation of chronic low back pain Unknown 06/22/15 Active Puncture wound Unknown 11/25/15 Active Nail wound of right foot Unknown 11/25/15 Active Abdominal pain, acute, right lower quadrant Unknown 02/18/16 Active Pancreatitis 02/21/16 02/18/16 Active Ulcerative colitis Unknown 02/25/16 Active Medications Current Home Medications Medication Dose Units Route Directions Days/Qty Instructions Start Date MEDICATION RECONCILIATION (Medication Reconciliation) 1 EACH EA 1 EACH BY MOUTH ONE TIME ONLY Acetaminophen 325 MG (Tylenol 325 MG) 1 TAB TAB 650 MG BY MOUTH EVERY 6 HOURS NEEDED PRN PAIN Levofloxacin* (Levaquin*) 500 MG UD.TAB 500 MG BY MOUTH DAILY For Ulcerative colitis flare 5 1 tab daily for the enxt 5 days 02/25/16 Metronidazole (Flagyl) 500 MG UD.TAB 500 MG BY MOUTH EVERY 8 HOURS For Ulcerative colitis flare 15 1 tab Q8 hours for 5 days 02/25/16 Multiple Vitamin (Centrum Silver)* (Centrum Silver*) 1 EA TAB 1 TAB BY MOUTH DAILY [place]-3 Fatty Acids (FISH OIL 1000 mg) 1 CAP CAP 1,000 MG BY MOUTH DAILY Ondansetron Odt (Zofran Odt) 4 MG TAB 1 TAB BY MOUTH EVERY 6 HOURS NEEDED PRN NAUSEA AND VOMITING 10 02/18/16 Oxycodone Ir 5 MG TABLET 5 MG BY MOUTH EVERY 4 HOURS NEEDED PRN Ulcerative colitis flare 30 1-2 tabs Q4-6 hours PRN for breakthrough pain Past Home Medications Medication Directions Ordered Status [...] 20 Mg Po DAILY Unknown Discontinued Clindamycin Hcl* (Cleocin Hcl*) 150 Mg Capsule Capsule, 300 Mg By [...] as needed Unknown Discontinued Hydrocodone 5MG/Acet 325MG (Roma 5-325 Tablet) 1 Each Tablet Tablet, 1 Tab By Mouth EVERY 4 HOURS NEEDED PRN PAIN 12/27/14 Discontinued Hydrocodone 5MG/Acet 325MG (Roma 5-325 Tablet) 1 Each Tablet Tablet, 1 Tab By Mouth EVERY 6 HOURS NEEDED PRN PAIN 01/16/15 Discontinued Hydrocodone 5MG/Acet 325MG (Roma 5-325 Tablet) 1 Each Tablet Tablet, 1 Tab By Mouth EVERY 6 HOURS NEEDED PRN PAIN 02/14/15 Discontinued Hydrocodone 5MG/Acet 325MG (Roma 5-325 Tablet) 1 Each Tablet Tablet, 1-2 Tab Po EVERY 4 HOURS NEEDED PRN PAIN 09/27/13 Discontinued Hydrocodone 5MG/Acet 325MG (Roma 5-325 Tablet) 1 Each Tablet Tablet, 1 [...] NEEDED PRN NAUSEA AND VOMITING 01/06/15 Discontinued Oxycodone Cr* (Oxycontin Cr*) 10 Mg Tab.sr.12h Tab.sr.12h, 10 Mg By Mouth Q6HOUR For pain Unknown Discontinued Prazosin (Minipress) 2 Mg Ud.cap Ud.cap, 2 Mg Po TWICE DAILY Unknown Discontinued Prazosin (Minipress) 2 Mg Ud.cap Ud.cap, 2 Mg TWICE DAILY Unknown Discontinued Tramadol* (Ultram*) 50 Mg Tab Tab, 50 Mg By Mouth EVERY 6 HOURS NEEDED PRN PAIN 08/28/14 Discontinued Trazodone (Desyrel<Generic>) 50 Mg Ud.tab Ud.tab, 25 Mg Po Bedtime as needed PRN INSOMNNIA Unknown Discontinued Social History Problem Response Recorded Date Drug Use none 09/27/13 Alcohol Use none 09/27/13 Hospital Discharge Instructions ======DISCHARGE WITH THE FOLLOWING INSTRUCTIONS====== Reason for Hospitalization: PANCREATITIS, NAUSEA/VOMITING/ ABD PAIN Physician: DR. BUCHANAN Discharge Diet: SURGICAL SOFT Discharge Activity: TOLERATED Special Care: TAKE NE MEDICATIONS PRESCRIBED. TAKE PREVIOUS MEDICATIONS Special Care: DIRECTED. RETURN TO CARE FOR WORSENING SYMPTOMS OR CONCERNS. Return Appointment: CLINIC WILL CONTACT YOU WITH FOLLOW-UP WITH DR. BUCHANAN EARLY THIS NEXT Return Appointment: WEEK. Vaccinations Given: None Given If you need assistance in contacting your physician or his/ her designee call [facility] switchboard at [phone]. At [facility] we strive to provide excellent care to all patients, every visit. We appreciate any feedback from those we serve to make sure that we are meeting our goal. After dismissal, you may receive a phone call from [employer] to ask about your overall experience. We [...] dismissal instructions.) Plan of Care Discharge Date 02/25/16 Disposition HOME/SELF CARE Instructions/Education Provided Soft Diet DI for Pancreatitis Oxycodone Metronidazole Oral Levofloxacin Forms Provided DISCHARGE INSTRUCTIONS Prescriptions See Medications Section Care Plan and Goals See Discharge Instructions section Functional Status Query Response Date Recorded Mobility: Independent February 25, 2016 8:30am Toileting: Independent February 21, 2016 11:25am Bath: Independent February 21, 2016 11:25am Oral Care: Independent February 25, 2016 4:34am Dressing: Independent February 21, 2016 11:25am Eating: Independent February 21, 2016 11:25am Food Preparation: Independent February 21, 2016 11:25am Housekeeping: Independent February 21, 2016 11:25am Transportation: Independent February 21, 2016 11:25am Allergies, Adverse Reactions, Alerts Allergen Type Severity Reaction Status Last Updated NSAIDS (NON-STEROIDAL ANTI-INFLAMMA Allergy Unknown Active 04/08/15 MORPHINE Allergy Severe Anaphylaxis Active 04/08/15 SUMATRIPTAN Allergy Severe SEIZURES Active 02/21/16 KETOROLAC Allergy Severe ANAPHYLAXIS Active 10/17/15 PNEUMOCOCCAL VACCINE Allergy Intermediate BROKEOUT/SWELLING Active TOMATO Allergy Unknown Active 04/08/15 influenza A (H1N1) virus vaccine m-kelsi-split 2009 Allergy Unknown Active 02/21/16 Immunizations Name Date Given Type *Flu Shot: Historical *Tetanus Shot: Greater than 2 Years Historical Vital Signs Vital Reading Collection Date/Time Result Blood Pressure 02/25/16 10:07am 99/59 Blood Pressure Source 02/25/16 7:07am Brachial Patient Temperature 02/25/16 10:07am 98.0 Temperature Source 02/25/16 7:07am Oral Respiratory Rate 02/25/16 10:07am 18 Pulse Rate 02/25/16 10:07am 65 Pulse Location 02/25/16 7:07am Monitor Bedside Pulse Oximetry 02/25/16 10:07am 97 Height 02/21/16 4:27pm 193.04 cm Height 02/21/16 4:27pm 6 ft 4 in Weight 02/21/16 4:27pm 85.729 kg Weight 02/21/16 4:27pm 189 lb 0 oz Body Mass Index 02/21/16 4:27pm 23.[address] [address] ED PHYSICIAN DOCUMENTATION Patient Name: IZZY RAINEY : 76 Unit #: [id number] Patient's Service Date: 02/18/16 ED Physician: Vilma Luna MD (ED) Primary Physician: Shayy Buchanan DO History of Present Illness General Chief Complaint Abdominal Pain Stated Complaint abdominal pain Time Seen by Provider 1404 Source patient Exam Limitations no limitations History of Present Illness Initial Comments The patient has right lower quadrant pain for three days. Location abdomen Quality sharp Severity severe Duration days (three) Timing continuous, worsening Allergies Coded Allergies: KETOROLAC (Severe, ANAPHYLAXIS 10/17/15) MORPHINE (Severe, Anaphylaxis 04/08/15) PNEUMOCOCCAL VACCINE (Intermediate, BROKEOUT/SWELLING 04/08/15) NSAIDS (NON-STEROIDAL ANTI-INFLAMMA (04/08/15) TOMATO (04/08/15) Home Medications Reported Medications Acetaminophen 325 MG (Tylenol 325 MG) 650 MG BY MOUTH Q6H PRN PRN PAIN MEDICATION RECONCILIATION (Medication Reconciliation) 1 EACH BY MOUTH ONE [place]-3 Fatty Acids (FISH OIL 1000 mg) 1,000 MG BY MOUTH DAILY Multiple Vitamin (Centrum Silver)* (Centrum Silver*) 1 TAB BY MOUTH DAILY Review of Systems Review of Systems Was ROS Completed? Yes Constitutional Reports chills, Denies fever ENT Denies nose congestion Respiratory Denies cough, Denies short of breath Cardiovascular Denies chest pain Gastrointestinal Reports abdominal pain, Reports nausea, Reports vomiting, Denies constipation, Denies diarrhea Genitourinary Denies dysuria Musculoskeletal Denies back pain Past Medical History Past Medical History Medical History traumatic brain injury degenerative disc disease episodic back pain, ulcerative colitis Surgical History vasectomy abdominal surgery after trauma Psychosocial History depression, post traumatic stress Social History Smoker Never smoker Alcohol (Age 13 & Up) denies alcohol use Drugs (Age 13 & Up) denies drug use Physical Exam Physical Exam Nursing Assessment Reviewed Yes Constitutional well developed, well nourished, mild distress Ear, Nose, Throat hearing grossly normal Neck normal inspection, supple Respiratory no respiratory distress, normal breath sounds, no accessory muscle use Cardiovascular regular rate/rhythm, no murmur Gastrointestinal soft, normal bowel sounds, RLQ tenderness Musculoskeletal normal strength Skin normal color, warm/dry Neurological no motor deficit Psychiatric alert, oriented, normal mood/affect Results Results Labs Laboratory Tests 02/17 02/17 1242 1244 Chemistry Sodium (135 - 150 mmol/L) 140 Potassium (3.4 - 5.2 mmol/L) 3.9 Chloride (100 - 112 mmol/L) 104 Carbon Dioxide (21 - 33 meq/L) 29 Anion Gap (8 - 16 mmol/L) 7 L BUN (5 - 21 mg/dl) 10 Creatinine (0.60 - 1.30 mg/dl) 1.17 GFR Calculation (> 60 mL/Min) > 60 Glucose (70 - 99 mg/dl) 94 Calcium (8.6 - 10.5 mg/dl) 9.5 Total Bilirubin (0.0 - 1.2 mg/dl) 0.3 AST (6 - 37 U/L) 23 ALT (12 - 78 U/L) 36 Alkaline Phosphatase (46 - 116 U/L) 87 Total Protein (6.4 - 8.2 g/dl) 8.2 Albumin (3.3 - 4.5 g/dl) 4.4 Albumin/Globulin Ratio (0.7 - 2.0) 1.2 Lipase (65 - 230 U/L) 262 H Hematology WBC (4.5 - 11.0 10^3/uL) 8.7 RBC (4.70 - 6.00 10^6/uL) 5.02 Hgb (13.5 - 17.5 g/dl) 14.8 Hct (41 - 53 %) 43.3 MCV (80 - 100 fL) 86.4 MCH (25.0 - 34.0 pg) 29.5 MCHC (31.0 - 36.0 g/dL) 34.2 RDW (11.0 - 15.0 %) 13.6 Plt Count (130 - 400 10^3/uL) 216 MPV (7.0 - 11.0 fL) 8.3 Neutrophils % (43.0 - 72.0 %) 71.8 Lymphocytes % (15.0 - 45.0 %) 18.7 Monocytes % (1.0 - 12.0 %) 8.6 Eosinophils % (0.0 - 6.0 %) 0.4 Basophils % (0.0 - 2.0 %) 0.5 Neutrophils # (1.0 - 8.0 10^3/uL) 6.2 Lymphocytes # (1.0 - 3.0 10^3/uL) 1.6 Monocytes # (0.0 - 1.0 10^3/uL) 0.8 Eosinophils # (0.0 - 0.4 10^3/uL) 0.0 Basophils # (0.0 - 0.2 10^3/uL) 0.0 Urines Urine Color (Yellow) Yellow Urine Appearance (Clear) Clear Urine pH (4.5 - 7.5) 7.0 Ur Specific [place] (1.010 - .025) 1.010 Urine Protein (Negative) Negative Urine Ketones (Negative) Negative Urine Blood (Negative) Negative Urine Nitrate (Negative) Negative Urine Bilirubin (Negative) Negative Urine Urobilinogen (<=1.0) 0.2 Ur Leukocyte Esterase (Negative) Negative Urine Glucose (Negative) Negative CT Reviewed by ED provider Yes (CT abdomen and pelvis) Progress Note Medications Medications Medications Given in ED Sig/[place] Start time Last Medication Dose Route Stop Time Status Admin/ Admin Dose Fentanyl Citrate 0 .STK-MED ONE 02/17 1334 DC (FENTANYL) .ROUTE 1334 50 MCG Hydromorphone HCl 1 MG ONE ONE 02/17 1403 DC (Dilaudid*) IV 02/17 1404 1428 1 MG Ondansetron HCl 0 .STK-MED ONE 02/17 1249 DC (Zofran) .ROUTE 1252 Unknown Sodium Chloride 1,000 ML .STK-MED ONE 02/17 1249 DC (0.9% Sodium IV 1250 Chloride) 1,000 MLS Departure Departure Clinical Impression Primary Impression: Abdominal pain, acute, right lower quadrant Secondary Impressions: Pancreatitis Qualifiers: Chronicity: acute Pancreatitis type: unspecified pancreatitis type Acute pancreatitis complication: unspecified Qualified Code: K85.90 - cute pancreatitis without necrosis or infection, unspecified Time of Disposition 1521 Disposition HOME/SELF CARE Condition Improved Tobacco Education Education Handout Given Patient Instructions Clear Liquid Diet, DI for Pancreatitis, How to Quit Tobacco Products Referrals Shayy Buchanan DO (PCP/Family) Additional Instructions Follow up in one to two days for a repeat lipase. Return to the ED if worsening. Prescriptions Current Visit Scripts Hydrocodone/Acetaminophen (Hydrocodone/Apap 5/325) 1 TAB BY MOUTH Q6H PRN PRN pain #10 TAB Ondansetron Odt (Zofran Odt) 1 TAB BY MOUTH Q6H PRN PRN NAUSEA AND VOMITING #10 TAB Vilma Luna MD Electronically Signed 02/18/16 1523 Procedures No Known History of Procedures. Encounters Encounter Location Arrival/Admit Date Discharge/Depart Date Attending Provider Discharged Inpatient [facility] 02/21/16 10:57am 02/25/16 10: 50am Shayy Buchanan DO Registered Clinical [facility] 02/19/16 2:51pm Shayy Buchanan DO Departed Emergency [facility] 02/18/16 12:15pm 02/18/16 3:45pm Jeremy (ED) Vilma Alvarez MD Registered Clinical [facility] 11/28/15 4:26pm Shayy Buchanan DO Encounter Diagnosis Onset Date Post-operative state Post-op bleeding Wound dehiscence Injury of left shoulder Injury by nail gun Contusion of leg, left Fall Acute exacerbation of chronic low back pain Puncture wound Nail wound of right foot Abdominal pain, acute, right lower quadrant Pancreatitis 02/21/16 Ulcerative colitis
--- OUTSIDE RECORDS SUMMARY | 2018-08-06 11:58 | XMS REPORT | Continuity of Care Document ---
Author Author [facility] Address [address] [place] [address] Care Team Providers Care Herbarium Curator Name Role Phone , PCP Unavailable Shayy Buchanan PCP Galilea Bernardo Rndphys Allergies, Adverse Reactions, Alerts Allergen Type Severity Reaction Last Updated Verified Status ketorolac Allergy Severe ANAPHYLAXIS September 26, 2017 Y Active morphine Allergy Severe Anaphylaxis September 26, 2017 Y Active sumatriptan Allergy Severe SEIZURES September 26, 2017 Y Active tomato Allergy Severe Anaphylaxis September 26, 2017 Y Active influenza A (H1N1) virus vaccine m-kelsi-split 2008 Allergy Mild Hives September 26, 2017 Y Active Medications Active Medications Medication Dose Units Route Sig Qty Start Date Status Hydrocodone-Acetaminophen [Bend] 1 TAB Oral Every 6 Hours PRN For pain 10 September 26, 2017 Active Levofloxacin [Levaquin] 500 MG Oral Daily 9 September 26, 2017 Active Problem List Active Problems Medical Problem Onset Date Status Pain in left testicle Active Procedures Procedure Date Status CT abd pel w IV contrast only September 26, 2017 completed US testicle September 26, 2017 completed Relevant Diagnostic Tests and/or Laboratory Data Laboratory Results Test Date/Time Result Interp. Ref. Range Result Comment White Blood Count September 26, 2017 7:40pm 7.9 10^3/uL 4.5-11.0 Red Blood Count September 26, 2017 7:40pm 4.81 10^6/uL 4.70-6.00 Hemoglobin September 26, 2017 7:40pm 14.8 g/dL 13.5-17.5 Hematocrit September 26, 2017 7:40pm 42.5 % 41-53 Mean Corpuscular Volume September 26, 2017 7:40pm 88.4 fL 79-99 Mean Corpuscular Hemoglobin September 26, 2017 7:40pm 30.8 pg 25.0-34.0 Mean Corpuscular Hemoglobin Concent September 26, 2017 7:40pm 34.9 g/dL 31.0- 36.0 Red Cell Distribution Width September 26, 2017 7:40pm 13.1 % 11.0-15.0 Platelet Count September 26, 2017 7:40pm 211 10^3 uL 130-400 Mean Platelet Volume September 26, 2017 7:40pm 8.4 fL 7.0-11.0 Neutrophils (%) (Auto) September 26, 2017 7:40pm 64.6 % 43.0-72.0 Lymphocytes (%) (Auto) September 26, 2017 7:40pm 22.2 % 15.0-45.0 Monocytes (%) (Auto) September 26, 2017 7:40pm 11.7 % 1.0-12.0 Eosinophils (%) (Auto) September 26, 2017 7:40pm 1.0 % 0.0-6.0 Basophils (%) (Auto) September 26, 2017 7:40pm 0.5 % 0.0-2.0 Neutrophils # (Auto) September 26, 2017 7:40pm 5.1 10^3 uL 1.0-8.0 Lymphocytes # (Auto) September 26, 2017 7:40pm 1.8 10^3 uL 1.0-3.0 Monocytes # (Auto) September 26, 2017 7:40pm 0.9 10^3 uL 0.0-1.0 Eosinophils # (Auto) September 26, 2017 7:40pm 0.1 10^3 uL 0.0-0.4 Basophils # (Auto) September 26, 2017 7:40pm 0.0 10^3 uL 0.0-0.2 Prothrombin Time September 26, 2017 7:40pm 13.2 Seconds 11.9-14.4 INR International Normalized Ratio September 26, 2017 7:40pm 1.02 0.89-1.13 Therapeutic Range: Prophylaxis - Thrombosis 2.0-3.0 Mechanical Heart Valves 2.5-3.5 Myocardial Infarction 2.0-3.0 Activated Partial Thromboplast Time September 26, 2017 7:40pm 29.7 Seconds 23.9-34.0 Urine Color September 26, 2017 7:35pm Yellow Urine Appearance September 26, 2017 7:35pm Clear Urine pH September 26, 2017 7:35pm 5.5 Urine Specific [place] September 26, 2017 7:35pm >=1.030 High Urine Protein September 26, 2017 7:35pm Negative Urine Glucose (UA) September 26, 2017 7:35pm Negative Urine Ketones September 26, 2017 7:35pm Negative Urine Blood September 26, 2017 7:35pm Negative Urine Nitrite September 26, 2017 7:35pm Negative Urine Bilirubin September 26, 2017 7:35pm Negative Urine Urobilinogen September 26, 2017 7:35pm 0.2 Urine Leukocyte Esterase September 26, 2017 7:35pm Negative Urine Culture Indicated September 26, 2017 7:35pm Not Indicated No Culture Reflex Ordered. The specimen did not meet the following criteria OR contained >25 epithelials, indicating contamination. * Culture Criteria: * * * * Urinalysis Leukocyte 1+ or > * * Urinalysis Nitrates + * * Microscopic WBC 10 or > * * Microscopic Bacteria 2+ or > * * Microscopic Yeast 2+ or > * Sodium Level September 26, 2017 7:40pm 142 mmol/L 135-150 Potassium Level September 26, 2017 7:40pm 3.9 mmol/L 3.4-5.2 Chloride Level September 26, 2017 7:40pm 107 mmol/L 100-112 Carbon Dioxide Level September 26, 2017 7:40pm 24 mEq/L 18-30 Anion Gap September 26, 2017 7:40pm 11 mmol/L 8-11 Blood Urea Nitrogen September 26, 2017 7:40pm 10 mg/dL 5-21 Creatinine September 26, 2017 7:40pm 1.24 mg/dL 0.60-1.30 Glomerular Filtration Rate Calc September 26, 2017 7:40pm > 60 mL/Min The GFR is not validated for use in drug dosing adjustments. Continue to use estimated creatinine clearance per dosing reference text. Chronic Kidney Disease is defined as either kidney damage or a GFR less than 60 ml/min that persists for at least 3 months. Stage 3=30-59 ml/min Stage 4=15-29 ml/min Stage 5=<15 ml/min Glucose Level September 26, 2017 7:40pm 65 mg/dL Low 70-99 Nurse notified. Bedside Glucose September 26, 2017 8:40pm 96 mg/dL 70-99 Calcium Level September 26, 2017 7:40pm 9.3 mg/dL 8.6-10.5 Total Bilirubin September 26, 2017 7:40pm 0.5 mg/dL 0.0-1.2 Aspartate Amino Transf (AST/SGOT) September 26, 2017 7:40pm 17 U/L 6-37 Alanine Aminotransferase (ALT/SGPT) September 26, 2017 7:40pm 20 U/L 12-78 Total Protein September 26, 2017 7:40pm 7.4 g/dL 6.4-8.2 Albumin September 26, 2017 7:40pm 4.2 g/dL 3.3-4.5 Albumin/Globulin Ratio September 26, 2017 7:40pm 1.3 0.7-2.0 Alkaline Phosphatase September 26, 2017 7:40pm 70 U/L 50-136 Advance Directives Advance Directive Response Recorded Date/Time Advance Directive on File? GIVEN September 26, 2017 7:08pm Chief Complaint and Reason for Visit Encounter Admit Date Chief Complaint Reason for Visit Departed Emergency September 26, 2017 7:08pm male genital Hospital Discharge Instructions Additional Discharge Instructions Follow up early next week for a recheck. Return to the ED as needed or if worsening. Instruction/Education Provided Testicle Pain (ED) Problem: Urogenital - Male Goal: Reduction of symptoms. Plan: Refer to patient instructions provided. Hospital Discharge Medications Medication Dose Units Route Sig Qty Days Order Date Status Instructions Hydrocodone-Acetaminophen 1 TAB Oral Every 6 Hours PRN For pain 10 September 26, 2017 Active Levofloxacin 500 MG Oral Daily 9 September 26, 2017 Active Encounters Encounter Facility Location Admit/Visit Date Discharge/Departure Date Attending Provider Departed Emergency [facility] Emergency Department September 26, 2017 7:08pm September 26, 2017 10:20pm Family History Query Response Instance Date Recorded Comment Family History CAD/SD September 26, 2017 9:30pm Functional Status No known functional status. Immunizations No known immunizations. Payers Payer Name Policy Type Covered Green Party Covered Green Party Id Relationship Subscriber Subscriber Id [employer] Matt Nye [id number] Self / Same As Patient Matt Nye [id number] Self Pay Plan of Care Instructions Testicle Pain (ED) Problem: Urogenital - Male Goal: Reduction of symptoms. Plan: Refer to patient instructions provided. Social History Query Response Date Recorded Comment Recent Travel No September 26, 2017 9:30pm current occupational exposures/hazards No September 26, 2017 7:22pm service No September 26, 2017 7:22pm second hand exposure No September 26, 2017 7:22pm substance use type does not use September 26, 2017 9:30pm Query Response Start Date Stop Date Smoking Status Never smoker Vital Signs Vital Reading Result Reference Range Collection Date/Time Height 6 ft 4 in September 26, 2017 7:22pm Weight 200 lb September 26, 2017 7:22pm Temperature 97.6 F 97.5 F-99.5 F September 26, 2017 7:22pm Pulse 82 BPM 60-90 September 26, 2017 7:22pm Respiration 16 RPM 12-20 September 26, 2017 7:22pm Pulse Oximetry 100 % 90-100 September 26, 2017 7:22pm Blood Pressure Systolic 121 100-160 September 26, 2017 7:22pm Blood Pressure Diastolic 86 50-80 September 26, 2017 7:22pm Body Mass Index 24.3 September 26, 2017 7:22pm
--- OUTSIDE RECORDS SUMMARY | 2018-08-06 11:58 | XMS REPORT | Continuity of Care Document ---
Author Author [facility] Address [address] 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 Joinery Factory Worker Name Role Phone , PCP Unavailable ALIDA BERGERON Rndphys Shayy Buchanan PCP Allergies, Adverse Reactions, Alerts [...] Route Sig Qty Start Date Status Hydrocodone-Acetaminophen [[place]] 1 TAB Oral Every 6 Hours PRN [...] September 26, 2017 7:35pm 5.5 Urine Specific [place] September 26, 2017 7:35pm >=1.030 High Urine [...] Date Discharge/Departure Date Attending Provider Departed Emergency [facility] Emergency Department September 26, 2017 7:08pm September 26, 2017 10:20pm Family History Query Response Instance Date Recorded Comment Family History CAD/ID September 26, 2017 9:30pm Functional Status No known functional status. Immunizations No known immunizations. Payers Payer Name Policy Type Covered Democrat Covered Democrat Id Relationship Subscriber Subscriber Id [facility] Medicaid Matt Nye [id number] Self / Same As Patient Matt Nye [id number] Self Pay Plan of Care Instructions Testicle [...]
--- OUTSIDE RECORDS SUMMARY | 2018-08-06 11:58 | XMS REPORT | Continuity of Care Document ---
Author Author [facility] Address Unknown Phone Unavailable Care Team Providers Care Midlevel Provider Name Role Phone DOCTOR, OUT OF TOWN Unavailable Unavailable Insurance Providers Payer Name Policy Number Subscriber Name Relationship [facility] Administration [id number] IZZY RAINEY PATIENT/SELF Advance Directives Directive Response Recorded Date/Time Advance Directive Information: AD BROCHURE GIVEN TO PT 01/16/15 12:37pm Chief Complaint and Reason for Visit Reason for Visit Postoperative wound dehiscence Problems Medical Problems Problem Onset Date Status Low back pain Unknown Active Concussion Unknown Active Neck sprain Unknown Active Blunt head injury Unknown Active Head contusion Unknown Active Neck strain Unknown Active Post-operative state Unknown Active Post-op bleeding Unknown Active Wound dehiscence Unknown Active Medications Medication Dose Route Sig [...] Qty 09/27/13 01/06/15 Discontinued Hydrocodone 5MG/Acet 325MG ([place] 5-325 Tablet) 1 EACH TABLET 1-2 TAB [...] Qty 11/09/14 01/06/15 Discontinued Hydrocodone 5MG/Acet 325MG ([place] 5-325 Tablet) 1 EACH TABLET 1 TAB OPHTHALMIC EVERY 4 HOURS NEEDED PRN PAIN 15 Qty 12/27/14 Active Ondansetron Odt (Zofran Odt) 4 MG TAB 1 TAB OPHTHALMIC EVERY 6 HOURS NEEDED PRN NAUSEA AND VOMITING 10 Qty 01/06/15 Active Hydrocodone 5MG/Acet 325MG ([place] 5-325 Tablet) 1 EACH TABLET 1 TAB OPHTHALMIC EVERY 6 HOURS NEEDED PRN PAIN 12 Qty 01/06/15 01/06/15 Discontinued Hydrocodone 5MG/Acet 325MG ([place] 5-325 Tablet) 1 EACH TABLET 1 TAB OPHTHALMIC EVERY 6 HOURS NEEDED PRN PAIN 10 Qty 01/16/15 Active Social History Social History Problem Response Recorded Date/Time Alcohol Use none 09/27/13 1:56pm Drug Use none 09/27/13 1:56pm Hospital Discharge Instructions No hospital discharge instructions. Plan of Care Discharge Date 01/16/15 2:36pm Disposition HOME/SELF CARE Condition at Discharge Stable Instructions/Education Provided DI for Wound Dehiscence Prescriptions See Medications Section Referrals OUT OF TOWN DOCTOR Additional Instructions/Education Follow up with your surgeon this week for further evaluation. Return to the as needed. Care Plan and Goals Problem: Post Operative Complaints Goal: Improvement of symptoms. Plan: Refer to patient instructions provided. Functional [...] Vital Reading Collection Date/Time Result Blood Pressure 01/16/15 12:37pm 118/71 Patient Temperature 01/16/15 12:37pm 97.9 Temperature Source 01/16/15 12:37pm TEMP Respiratory Rate 01/16/15 12:37pm 16 Pulse Rate 01/16/15 12:37pm 92 Bedside Pulse Oximetry 01/16/15 12:37pm 97 Height 01/16/15 12:37pm 6 ft 4 in Weight 01/16/15 12:37pm 205 lb Body Mass Index 01/16/15 12:37pm 25.0 Procedures No Known History of Procedures. [...] Protein 01/06/15 Negative Negative - Urine Specific [place] 01/06/15 1.020 1.010 - .025 Urine Urobilinogen [...] 11.0 Encounters Encounter Location Date/Time Departed Emergency [facility] 01/16/15 2:36pm Departed Emergency [facility] 01/06/15 3:29pm Departed Emergency [facility] 12/27/14 2:45pm Departed Emergency [facility] 11/10/14 0:11am Departed Emergency [facility] 08/28/14 8:48pm Recent Diagnosis Postoperative wound dehiscence
--- OUTSIDE RECORDS SUMMARY | 2018-08-06 11:59 | XMS REPORT ---
Author Author [facility] Medical Staff Organization [facility] Address [address] [place], [place] [address] Phone [phone] Care Team Providers Care Skelp Processor Name Role Phone CANDY GARCIA DO PP [phone] Summary purpose CCDA Sent to [facility] Chief Complaint and Reason for Visit [...] for this patient visit History of procedures Procedure Code Code Type Description Date Performed Performing Physician 85480 CPT-4 EMERGENCY DEPT VISIT 05-15-2014 SUZE JACOBS Functional status No functional or cognitive status [...]
--- OUTSIDE RECORDS SUMMARY | 2018-08-06 11:59 | XMS REPORT | Continuity of Care Document ---
Author Author [facility] Address [address] [place] [address] Care Team Providers Care Field Consultant Name Role Phone Shayy Buchanan DO Unavailable Insurance Providers Payer Name Policy Number Subscriber Name Relationship [employer] [id number] IZZY RAINEY PATIENT/SELF Advance Directives Directive Response Recorded Date/Time Advance Directive Information: AD BROCHURE GIVEN TO PT 02/18/16 12:15pm Chief Complaint and Reason for Visit Reason for Visit ABDPAIN Problems Active Medical Problems Problem Onset Date [...] right lower quadrant Unknown 02/18/16 Active Pancreatitis Unknown 02/18/16 Active Medications Current Home Medications Medication Dose Units Route Directions Days/Qty Instructions Start Date MEDICATION RECONCILIATION (Medication Reconciliation) 1 EACH EA 1 EACH BY MOUTH ONE TIME ONLY Acetaminophen 325 MG (Tylenol 325 MG) 1 TAB TAB 650 MG BY MOUTH EVERY 6 HOURS NEEDED PRN PAIN Hydrocodone/Acetaminophen (Hydrocodone/Apap 5/325) 1 EACH TABLET 1 TAB BY MOUTH EVERY 6 HOURS NEEDED PRN pain 10 02/18/16 Multiple Vitamin (Centrum Silver)* (Centrum Silver*) 1 EA TAB 1 TAB BY MOUTH DAILY Orwell-3 Fatty Acids (FISH OIL 1000 mg) 1 CAP CAP 1,000 MG BY MOUTH DAILY Ondansetron Odt (Zofran Odt) 4 MG TAB 1 TAB BY MOUTH EVERY 6 HOURS NEEDED PRN NAUSEA AND VOMITING 10 02/18/16 Past Home Medications Medication Directions Ordered Status [...] as needed Unknown Discontinued Hydrocodone 5MG/Acet 325MG ([place] 5-325 Tablet) 1 Each Tablet Tablet, 1 Tab By Mouth EVERY 4 HOURS NEEDED PRN PAIN 12/27/14 Discontinued Hydrocodone 5MG/Acet 325MG ([place] 5-325 Tablet) 1 Each Tablet Tablet, 1 Tab By Mouth EVERY 6 HOURS NEEDED PRN PAIN 01/16/15 Discontinued Hydrocodone 5MG/Acet 325MG ([place] 5-325 Tablet) 1 Each Tablet Tablet, 1 Tab By Mouth EVERY 6 HOURS NEEDED PRN PAIN 02/14/15 Discontinued Hydrocodone 5MG/Acet 325MG ([place] 5-325 Tablet) 1 Each Tablet Tablet, 1-2 Tab Po EVERY 4 HOURS NEEDED PRN PAIN 09/27/13 Discontinued Hydrocodone 5MG/Acet 325MG ([place] 5-325 Tablet) 1 Each Tablet Tablet, 1 [...] Mouth EVERY 6 HOURS NEEDED PRN PAIN 05/24/15 Discontinued Trazodone (Desyrel<Generic>) 50 Mg Ud.tab Ud.tab, 25 Mg Po Bedtime as needed PRN INSOMNNIA Unknown Discontinued Social History Problem Response Recorded Date Drug Use none 09/27/13 Alcohol Use none 09/27/13 Hospital Discharge Instructions No hospital discharge instructions. Plan of Care Discharge Date 02/18/16 Disposition HOME/SELF CARE Condition at Discharge Improved Instructions/Education Provided Clear Liquid Diet DI for Pancreatitis How to Quit Tobacco Products Prescriptions See Medications Section Referrals Shayy Buchanan DO - Additional Instructions/Education Follow up in one to two days for a repeat lipase. Return to the ED if worsening. Care Plan and Goals Problem: [...] Type *Flu Shot: None Historical *Tetanus Shot: Greater than 2 Years Historical Vital Signs Vital Reading Collection Date/Time Result Blood Pressure 02/18/16 4:42pm 131/77 Patient Temperature 02/18/16 4:42pm 98.8 Respiratory Rate 02/18/16 4:42pm 16 Pulse Rate 02/18/16 4:42pm 69 Bedside Pulse Oximetry 02/18/16 4:42pm 100 Height 02/18/16 12:21pm 6 ft 4 in Weight 02/18/16 12:21pm 205 lb Body Mass Index 02/18/16 12:21pm 25.0 Temperature Source 11/25/15 8:20pm Oral Results [place] [id number] ED PHYSICIAN DOCUMENTATION Patient Name: IZZY RAINEY : 76 Unit #: [id number] Patient's Service Date: 02/18/16 ED Physician: Vilma [...] (Medication Reconciliation) 1 EACH BY MOUTH ONE Orwell-3 Fatty Acids (FISH OIL 1000 mg) 1,000 [...] pH (4.5 - 7.5) 7.0 Ur Specific [place] (1.010 - .025) 1.010 Urine Protein (Negative) [...] Arrival/Admit Date Discharge/Depart Date Attending Provider Departed [facility] 02/18/16 12:15pm 02/18/16 3:45pm Jeremy (ED) Vilma Alvarez MD Registered Clinical [facility] 11/28/15 4:26pm Shayy Buchanan DO Departed Emergency [facility] 11/25/15 8:07pm 11/25/15 10:05pm Carlos Ray MD Encounter Diagnosis Acute abdominal pain in right lower quadrant Pancreatitis
--- OUTSIDE RECORDS SUMMARY | 2018-08-06 11:59 | XMS REPORT | Continuity of Care Document ---
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 [id number] Izzy Nye 16 Self Problems Medical Problems Problem Onset Date Status Foreign body of left hand Unknown Active Foreign body of left hand Unknown Active Medications Medication Dose Route Sig Days/Qty Instructions Order Date Discontinued Date Status Amoxicillin/Potassium Clav 1 Tab PO TWICE A DAY 14 Days TAKE WITH MEALS 11/05/13 Active Oxycodone HCl/Acetaminophen 1-2 Tab PO Every 6 Hours For PAIN 30 Qty Active Social History Social History Problem Response Recorded Date/Time Smoking Status Never smoker 11/05/2013 1:45pm Chewing Tobacco Status Yes 11/05/2013 1:45pm Hx Alcohol Use No 11/05/2013 1:45pm Hospital Discharge Instructions No hospital discharge instructions. Plan of Care No plan of care. Functional Status Query Response Date Recorded Physical Hygiene Self November 05, 2013 1:45pm Disabilities None November 05, 2013 1:45pm Devices Used None November 05, 2013 1:45pm Dressing Self November 05, 2013 1:45pm Ambulation Self November 05, 2013 1:45pm Diet Self November 05, 2013 1:45pm Mental Status Alert November 05, 2013 2:28pm Disabilities None November 05, 2013 1:45pm Devices Used None November 05, 2013 1:45pm Physical Hygiene Self November 05, 2013 1:45pm Dressing Self November 05, 2013 1:45pm Ambulation Self November 05, 2013 1:45pm Diet Self November 05, 2013 1:45pm Allergies, Adverse Reactions, Alerts Allergen Type Severity Reaction Status Last Updated Lidocaine Allergy Unknown Active 11/05/13 Morphine Allergy Unknown Active 11/05/13 Ketorolac Allergy Unknown Active 11/05/13 Immunizations Name Given Type Hx Influenza Vaccination Y FALL 2012 Historical Hx Tetanus, Diptheria, Pertussis Y WITHIN LAST 3 MONTHS Historical Hx Influenza Vaccination Y FALL 2012 Historical Hx Tetanus, Diptheria, Pertussis Y WITHIN LAST 3 MONTHS Historical Vital Signs Acute Vital Signs Vital Response Date/Time Temperature (Fahrenheit) 98.6 deg F (96.8 - 99.1) Temperature (Calculated Celsius) 37.78920 degrees C (36.0 - 37.3) Pulse Rate (adult) 106 bpm (60 - 100) Respiratory Rate 22 breaths/min (10 - 20) O2 Sat by Pulse Oximetry 97 % (90 - 100) Blood Pressure 117/70 mm Hg Results Name: IZZY NYE Unit #: [id number] : 1980 Sex: M Loc / Svc: ED DOS: 11/05/13 Signed Report #: [id number] DIAGNOSTIC IMAGING REPORT TYPE OF EXAM: HAND LEFT 3 VIEW Dictated By: RUPAL CAPELLAN MD Indication: ITS.REASON: large foreign body Comparison: None Findings: There is no acute fracture, dislocation or malalignment identified. 11-cm pointed metallic foreign body seen in the interspace between the index and long fingers extending between the second and third metacarpals. Impression: No acute osseous abnormality. Metallic foreign body. . Procedures No known history of procedures. Encounters Encounter Location Date/Time Departed Emergency Room [facility] 11/05/13 1:44pm Recent Diagnosis
--- OUTSIDE RECORDS SUMMARY | 2018-08-06 11:59 | XMS REPORT ---
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 Problem list No authorized problems tracked for [...] Code Type Description Date Performed Performing Physician 05043 CPT-4 X-RAY EXAM OF SHOULDER 05-15-2014 SUZE JACOBS 59486 CPT-4 X-RAY EXAM L-S SPINE 2/3 VWS 05-15-2014 SUZE JACOBS 67200 CPT-4 EMERGENCY DEPT VISIT 05-15-2014 SUZE JACOBS Functional status Cognitive Status Finding Observation Time Level of Consciousne Alert [id number] Oriented to Person Yes :[address] Yes [id number] Oriented to Time Yes [id number] Vital signs Type Value Date Respirations 20 :45 Pulse 112 :45 O2 Saturation 95% :45 Systolic Blood Press 127mm/HG :45 Diastolic Blood Pres 79mm/HG :45 Temperature (Fahr) 98.7Degrees :45 Social history Type Value Smoking Status NEVER SMOKER Treatment Plan No treatment plan text is available for this visit. Hospital discharge instructions Diagnosis lumbar strain, left shoulder injury Diet as tolerated Activity Level as tolerated, limited use until formal radiology read returns tomorrow, we will call you if any abnormalities noted by radiologist [facility] Other Instructions cold packs X 24 hrs and then change to heat, may need mri if pain persists
--- OUTSIDE RECORDS SUMMARY | 2018-08-06 11:59 | XMS REPORT | Continuity of Care Document ---
Author Author Ernandez [facility] Address [address] [place] [address] Care Team Providers Care Fructose Loader Name Role Phone Dewayne, Shayy Grijalva DO Unavailable Insurance Providers Payer Name Policy Number Subscriber Name Relationship [employer] [id number] IZZY RAINEY PATIENT/SELF Advance Directives Directive Response Recorded Date/Time Advance Directive Information: AD BROCHURE GIVEN TO PT 03/02/16 11:12am Chief Complaint and Reason for Visit Reason for Visit ABD PAIN Problems Active Medical Problems Problem Onset Date [...] MOUTH EVERY 6 HOURS NEEDED PRN PAIN Hydrocodone 5MG/Acet 325MG ([place] 5-325 Tablet) 1 EACH TABLET 1 TAB BY MOUTH EVERY 4 HOURS NEEDED PRN PAIN 15 03/02/16 Metoclopramide (Reglan) 10 MG TAB 1 TAB BY MOUTH EVERY 6 HOURS NEEDED PRN NAUSEA AND VOMITING 20 03/02/16 Multiple Vitamin (Centrum Silver)* (Centrum Silver*) 1 EA TAB 1 TAB BY MOUTH DAILY [place]-3 Fatty Acids (FISH OIL 1000 mg) 1 CAP CAP 1,000 MG BY MOUTH DAILY Past Home Medications Medication Directions Ordered Status [...] as needed Unknown Discontinued Hydrocodone 5MG/Acet 325MG ([place] 5-325 Tablet) 1 Each Tablet Tablet, 1 Tab By Mouth EVERY 4 HOURS NEEDED PRN PAIN 12/27/14 Discontinued Hydrocodone 5MG/Acet 325MG ([place] 5-325 Tablet) 1 Each Tablet Tablet, 1 Tab By Mouth EVERY 6 HOURS NEEDED PRN PAIN 01/16/15 Discontinued Hydrocodone 5MG/Acet 325MG ([place] 5-325 Tablet) 1 Each Tablet Tablet, 1 Tab By Mouth EVERY 6 HOURS NEEDED PRN PAIN 02/14/15 Discontinued Hydrocodone 5MG/Acet 325MG ([place] 5-325 Tablet) 1 Each Tablet Tablet, 1-2 Tab Po EVERY 4 HOURS NEEDED PRN PAIN 09/27/13 Discontinued Hydrocodone 5MG/Acet 325MG ([place] 5-325 Tablet) 1 Each Tablet Tablet, 1 [...] your physician or his/ her designee call [facility] switchboard at [phone]. At [facility] we strive to provide excellent care to all patients, every visit. We appreciate any feedback from those we serve to make sure that we are meeting our goal. After dismissal, you may receive a phone call from [facility] to ask about your overall experience. We [...] dismissal instructions.) Plan of Care Discharge Date 03/02/16 Disposition HOME/SELF CARE Condition at Discharge Improved Instructions/Education Provided Ulcerative Colitis DI for Ulcerative Colitis Prescriptions See Medications Section Referrals Shayy Buchanan DO - Additional Instructions/Education Home to rest. Continue with the medrol dose pack, taken as directed. For pain, take percocet, 5mg, one tablet every 4-6 hours as needed. Take reglan, 10mg, one tablet every 6 hours as needed for nausea and vomiting. Follow up with Dr. Buchanan early next week. Please return to the emergency room if you have any uncontrolled pain, develop a fever of 101.3 or greater, have uncontrolled nausea and vomiting, or for any other concern. Functional Status No functional status results. Allergies, [...] Type *Flu Shot: Unknown Historical *Tetanus Shot: Unknown Historical Vital Signs Vital Reading Collection Date/Time Result Blood Pressure 03/02/16 1:38pm 107/68 Patient Temperature 03/02/16 11:14am 98.5 Temperature Source 03/02/16 11:14am Temporal Respiratory Rate 03/02/16 1:38pm 18 Pulse Rate 03/02/16 1:38pm 91 Bedside Pulse Oximetry 03/02/16 1:38pm 96 Height 03/02/16 11:14am 6 ft 4 in Weight 03/02/16 11:14am 180 lb Body Mass Index 03/02/16 11:14am 21.9 Blood Pressure Source 02/25/16 7:07am Brachial Pulse Location 02/25/16 7:07am Monitor Height 02/21/16 4:27pm 193.04 cm Weight 02/21/16 4:27pm 85.729 kg Results [place] [id number] ED PHYSICIAN DOCUMENTATION Patient Name: IZZY RAINEY : 76 Unit #: [id number] Patient's Service Date: 03/02/16 ED Physician: Yarelis Sparrow MD Primary Physician: Shayy Buchanan DO History of Present Illness General Chief Complaint Abdominal Pain Stated Complaint ABD PAIN Time Seen by Provider [id number] Source patient Exam Limitations no limitations History of Present Illness Initial Comments Izzy has had move vomiting and diarrhea. He has been running a low grade fever the last couple of nights. He is having left sided pain that radiates towards the back. For breakfast he had nothing. He has not eaten anything for two days. He has a history of pancreatitis and it feels like his previous hospitalizations for pancreatitis. When the antibiotics were complete the pain worsened. Location abdomen Context present at rest Quality dull, throbbing Severity moderate Duration days Timing one episode, continuous Modifying Factors nothing worsens, better w/pain medication Associated Symptoms naused and vomiting Allergies Coded Allergies: KETOROLAC (Severe, ANAPHYLAXIS 10/17/15) MORPHINE (Severe, Anaphylaxis 04/08/15) SUMATRIPTAN (Severe, SEIZURES 02/21/16) PNEUMOCOCCAL VACCINE (Intermediate, BROKEOUT/SWELLING 04/08/15) NSAIDS (NON-STEROIDAL ANTI-INFLAMMA (04/08/15) TOMATO (04/08/15) influenza A (H1N1) virus vaccine [id number] 2008 (From INFLUENZA A (H1N1)) () Home Medications Reported Medications Acetaminophen 325 MG (Tylenol 325 MG) 650 MG BY MOUTH Q6H PRN PRN PAIN MEDICATION RECONCILIATION (Medication Reconciliation) 1 EACH BY MOUTH ONE [place]-3 Fatty Acids (FISH OIL 1000 mg) 1,000 MG BY MOUTH DAILY Multiple Vitamin (Centrum Silver)* (Centrum Silver*) 1 TAB BY MOUTH DAILY Discontinued Reported Medications Oxycodone CR* (Oxycontin CR*) 10 MG BY MOUTH Q6HOUR Review of Systems Review of Systems Was ROS Completed? Yes Constitutional Reports fever, Reports malaise, Reports weakness, Denies chills, Denies diaphoresis Eyes Denies eye pain ENT Denies ear pain, Denies nose pain, Denies throat pain Respiratory Denies cough, Denies short of breath Cardiovascular Denies chest pain Gastrointestinal Reports abdominal pain, Reports diarrhea, Reports nausea, Reports vomiting, Reports other ( smells like feces when vomiti), Denies constipation, Denies bloody stools, hematemesis Genitourinary Denies dysuria Musculoskeletal Reports back pain, Denies neck pain Skin Denies rash Neurological Denies headache, Denies numbness, Denies weakness (focal) Psychiatric Denies anxiety, Denies depression Hematologic/Lymphatic Denies easy bleeding, Denies easy bruising, Denies other (anemia) Past Medical History Past Medical History Medical History traumatic brain injury degenerative disc disease episodic back pain ulcerative colitis Surgical History vasectomy abdominal surgery after trauma Psychosocial History depression, post traumatic stress Family History Significant Family History mother from [place] Social History Smoker Never smoker Other Tobacco Use Chewing Tobacco Alcohol (Age 13 & Up) denies alcohol use Drugs (Age 13 & Up) denies drug use Physical Exam Physical Exam Exam Limitations no limitations Nursing Assessment Reviewed Yes Initial Vital Signs Vital Signs Result Date Time Pulse Ox 96 03/02 1114 B/P 130/85 03/02 111 Temp 98.5 03/02 111 Pulse 102 03/02 1114 Resp 20 03/02 1114 Constitutional no apparent distress Eyes bilateral eyes PERRL, bilateral eyes EOMI, bilateral eyes pupils equal Ear, Nose, Throat hearing grossly normal, normal TM (R), normal TM (L), nasal exam WNL, oral exam WNL Respiratory no respiratory distress, normal breath sounds, no accessory muscle use, chest non-tender Cardiovascular regular rate/rhythm, no murmur, no edema Gastrointestinal soft, normal bowel sounds, left upper quadrant tenderness Musculoskeletal normal strength Skin normal color, warm/dry, good capillary refill Neurological no motor deficit, no sensory deficit Psychiatric alert, oriented, normal mood/affect Results Results Labs Laboratory Tests 03/02 03/02 03/02 03/02 1128 1128 1130 1147 Chemistry Sodium (135 - 150 mmol/L) 137 Potassium (3.4 - 5.2 mmol/L) 4.3 Chloride (100 - 112 mmol/L) 103 Carbon Dioxide (21 - 33 meq/L) 24 Anion Gap (8 - 16 mmol/L) 10 BUN (5 - 21 mg/dl) 11 Creatinine (0.60 - 1.30 mg/dl) 1.23 GFR Calculation (> 60 mL/Min) > 60 Glucose (70 - 99 mg/dl) 103 H Calcium (8.6 - 10.5 mg/dl) 9.0 Total Bilirubin (0.0 - 1.2 mg/dl) 0.6 AST (6 - 37 U/L) 18 ALT (12 - 78 U/L) 37 Alkaline Phosphatase (46 - 116 U/L) 86 C-Reactive Prot, Quant (0.0 - 9.0 mg/L) 25.2 H Cancelled Total Protein (6.4 - 8.2 g/dl) 8.6 H Albumin (3.3 - 4.5 g/dl) 4.4 Albumin/Globulin Ratio (0.7 - 2.0) 1.0 Lipase (65 - 230 U/L) 181 Hematology WBC (4.5 - 11.0 10^3/uL) 18.8 H RBC (4.70 - 6.00 10^6/uL) 5.57 Hgb (13.5 - 17.5 g/dl) 16.4 Hct (41 - 53 %) 49.0 MCV (80 - 100 fL) 88.1 MCH (25.0 - 34.0 pg) 29.4 MCHC (31.0 - 36.0 g/dL) 33.4 RDW (11.0 - 15.0 %) 13.7 Plt Count (130 - 400 10^3/uL) 267 MPV (7.0 - 11.0 fL) 8.4 Neutrophils (Manual) (50 - 65 %) 56 Neutrophils # (1.0 - 8.0 #) 14.9 H Band Neutrophils (0 - 10 %) 23 H Lymphocytes (Manual) (15 - 45 %) 9 L Lymphocytes # (1.0 - 3.0 #) 1.7 Monocytes (Manual) (0 - 10 %) 9 Monocytes # (0.0 - 1.0 #) 1.7 H Eosinophils (Manual) (0 - 5 %) 3 Eosinophils # (0.0 - 0.4 #) 0.6 H Basophils # (0.0 - 0.2 #) 0.0 ESR (0 - 20 mm/Hr) 14 Urines Urine Color (Yellow) Yellow Urine Appearance (Clear) Clear Urine pH (4.5 - 7.5) 5.5 Ur Specific [place] (1.010 - .025) >=1.030 H Urine Protein (Negative) Negative Urine Ketones (Negative) Negative Urine Blood (Negative) Negative Urine Nitrate (Negative) Negative Urine Bilirubin (Negative) Negative Urine Urobilinogen (<=1.0) 0.2 Ur Leukocyte Esterase (Negative) Negative Urine Glucose (Negative) Negative Progress Note Medications Medications Medications Given in ED Sig/Garfield Start time Last Medication Dose Route Stop Time Status Admin/ Admin Dose Diphenhydramine HCl 25 MG ONE ONE 03/02 1146 DC (Benadryl*) IV 03/02 1147 1204 25 MG Metoclopramide HCl 10 MG ONE ONE 03/02 1146 DC (Reglan) IV 03/02 1147 1205 10 MG Sodium Chloride 1,000 ML .Q1H 03/02 1146 DC (0.9% Sodium IV 03/02 1245 1204 Chloride) 1,000 MLS PRN Medications Given in ED Sig/Garfield Start time Last Medication Dose Route Stop Time Status Admin/ Admin Dose Hydromorphone HCl 0.5 MG PRN PRN 03/02 1146 AC 03/02 (Dilaudid*) IV 1205 0.5 MG Consults Consults Time of Consult 1307 Discussed With Shayy Buchanan DO Reason/Comments okay with medrol dose pack and pain rx and follow up early next week. Departure Departure Clinical Impression Primary Impression: Ulcerative colitis Qualifiers: : : Qualified Code: K51.818 - Other ulcerative colitis with complication Time of Disposition 1309 Disposition HOME/SELF CARE Condition Improved Tobacco Education Tobacco Non-User Patient Instructions DI for Ulcerative Colitis, Ulcerative Colitis Referrals Shayy Buchanan DO (PCP/Family) Additional Instructions Home to rest. Continue with the medrol dose pack, taken as directed. For pain , take percocet, 5mg, one tablet every 4-6 hours as needed. Take reglan, 10mg, one tablet every 6 hours as needed for nausea and vomiting. Follow up with Dr. Buchanan early next week. Please return to the emergency room if you have any uncontrolled pain, develop a fever of 101.3 or greater, have uncontrolled nausea and vomiting, or for any other concern. Prescriptions Current Visit Scripts Metoclopramide (Reglan) 1 TAB BY MOUTH Q6H PRN PRN NAUSEA AND VOMITING #20 TAB Ref 1 Hydrocodone 5MG/Acet 325MG ([place] 5-325 Tablet) 1 TAB BY MOUTH Q4H PRN PRN PAIN #15 TAB Yarelis Sparrow MD Electronically Signed 03/02/16 1312 Procedures No Known History of Procedures. Encounters Encounter Location Arrival/Admit Date Discharge/Depart Date Attending Provider Departed Emergency [facility] 03/02/16 11:11am 03/02/16 1:42pm Yarelis Sparrow MD Discharged Inpatient [facility] 02/21/16 10:57am 02/25/16 10: 50am Jerry Husain DO Registered Clinical [facility] 02/19/16 2:51pm Shayy Buchanan DO Departed Emergency [facility] 02/18/16 12:15pm 02/18/16 3:45pm Jeremy (ED) Vilma Alvarez MD Encounter Diagnosis Ulcerative colitis
[2018-08-06] MEDS ORDERED: fentaNYL INJECTION 100 MCG/2 ML AMP IVP ONE ×2 (12:15→13:30)
[2018-08-06] MEDS ORDERED: ONDANSETRON 4 MG/2 ML (SDV) Z0FRAN IVP ONE (12:15)
[2018-08-06] MEDS ORDERED: HOLD METFORMIN - RECEIVED CONTRAST 20 ML VIAL IV SCH (12:30)
[2018-08-06] MEDS ORDERED: NS 100 ML (IVPB) BAG IV ONE (12:30)
[2018-08-06] MEDS ORDERED: IOHEXOL 350 MG/ML 100 ML (OMNIPAQUE 350) VIAL IV ONE (12:30)
[2018-08-06] MEDS ORDERED: CATHETER FLUSH 10 ML SYR IV PRN (12:30)
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
[2018-08-06 12:39] LABS: HEMATOCRIT 42 % (40-54); HEMOGLOBIN 14.2 G/DL (13.3-17.7); MEAN CORPUSCULAR HEMOGLOBIN 30 PG (25-34); MEAN CORPUSCULAR VOLUME 88 FL (80-99); WHITE BLOOD COUNT 7.8 10^3/uL (4.3-11.0)
[2018-08-06 12:40] LABS: BASOPHILS # (AUTO) 0.1 10^3/uL (0.0-0.1); BASOPHILS % (AUTO) 1 % (0-10); EOSINOPHILS # (AUTO) 0.1 10^3/uL (0.0-0.3); EOSINOPHILS % (AUTO) 1 % (0-10); LYMPHOCYTES # (AUTO) 1.8 X 10^3 (1.0-4.0); LYMPHOCYTES % (AUTO) 23 % (12-44); MEAN CORPUSCULAR HGB CONC 34 G/DL (32-36); MEAN PLATELET VOLUME 9.6 FL (7.4-10.4); MONOCYTES # (AUTO) 0.7 X 10^3 (0.0-1.0); MONOCYTES % (AUTO) 10 % (0-12); NEUTROPHILS # (AUTO) 5.1 X 10^3 (1.8-7.8); NEUTROPHILS % (AUTO) 65 % (42-75); PLATELET COUNT 291 10^3/uL (130-400); RED CELL DISTRIBUTION WIDTH 13.3 % (10.0-14.5)
[2018-08-06 13:00] LABS: ALKALINE PHOSPHATASE 76 U/L (40-136); BILIRUBIN,TOTAL 0.2 MG/DL (0.1-1.0); BUN/CREATININE RATIO 6; CALCIUM 9.3 MG/DL (8.5-10.1); CARBON DIOXIDE 27 MMOL/L (21-32); CHLORIDE 104 MMOL/L (98-107); GFR ESTIMATED > 60; GLUCOSE 96 MG/DL (70-105); POTASSIUM 3.8 MMOL/L (3.6-5.0); SODIUM 142 MMOL/L (135-145)
[2018-08-06 13:01] LABS: ALANINE AMINOTRANSFERASE 18 U/L (0-55); ALBUMIN 4.1 GM/DL (3.2-4.5); TOTAL PROTEIN 7.9 GM/DL (6.4-8.2)
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
[2018-08-06] MEDS ORDERED: CYCL10TA9 PO (13:46)
[2018-08-06] MEDS ORDERED: HYDR-4226 PO (13:46)
[2018-08-06 14:01] VITALS: BP 110/57
[2018-08-06 14:04] LABS: CLARITY,URINE CLEAR; COLOR,URINE YELLOW; GLUCOSE, URINE (UA) NEGATIVE (NEGATIVE); KETONES,URINE NEGATIVE (NEGATIVE); NITRITE,URINE NEGATIVE (NEGATIVE); PH,URINE 6.5 (5-9); PROTEIN,URINE NEGATIVE (NEGATIVE)
[2018-08-06 14:05] LABS: BACTERIA,URINE NEGATIVE /HPF; BILIRUBIN,URINE NEGATIVE (NEGATIVE); LEUKOCYTE ESTERASE ,URINE NEGATIVE (NEGATIVE); SQUAMOUS EPITHELIAL CELL,UR 0-2 /HPF; UROBILINOGEN,URINE 0.2 MG/DL (NORMAL)
== END 2018-08-06 14:02 | disposition home or self-care (01) ==
LOC: EDUNIT# 11:47 → ER FS 11:49
DX: S20.212A Contusion of left front wall of thorax, initial encounter (principal); S30.1XXA Contusion of abdominal wall, initial encounter; S30.22XA Contusion of scrotum and testes, initial encounter; Z88.4 Allergy status to anesthetic agent; Z88.5 Allergy status to narcotic agent; W55.82XA Struck by other mammals, initial encounter
CPT/HCPCS: 36415; 71260; 74177; 76870; 80053; 81000; 85025